=== PATIENT | male | born 1960 | race Caucasian/White ===

== ENCOUNTER 2017-12-21 10:51 | Emergency (ER) | payer MEDICARE, SELFPAY ==
[~2017-12-21] VITALS: Ht 177.8 cm; Wt 82.0 kg
[~2017-12-21 10:51] MED LIST changes: -LEVO750 PO; -NEPHRO-VITE RX1 EACH PO; -Vibramycin100 MG PO
[2017-12-21] MEDS ORDERED: Vibramycin100 MG PO (11:47)
[2017-12-22] MEDS ORDERED: LEVO750 PO (12:07)
== END 2017-12-21 12:16 | disposition home or self-care (01) ==
LOC: ER 10:51
DX: L02.211 Cutaneous abscess of abdominal wall (principal); Z79.899 Other long term (current) drug therapy; I13.2 Hypertensive heart and chronic kidney disease with heart failure and with stage 5 chronic kidney disease, or end stage renal disease; N18.6 End stage renal disease; I50.9 Heart failure, unspecified; E03.9 Hypothyroidism, unspecified; Z99.2 Dependence on renal dialysis; Z90.89 Acquired absence of other organs; Z90.49 Acquired absence of other specified parts of digestive tract; Z87.891 Personal history of nicotine dependence
CPT/HCPCS: 80076; 82150; 83690; 85025; 87070; 87075; 87205; 99283

== ENCOUNTER 2017-12-21 20:45 | Observation (INO) | payer MEDICARE, SELFPAY ==
[~2017-12-21] VITALS: Ht 177.8 cm; Wt 79.3 kg
[~2017-12-21 20:45] MED LIST changes: +Vibramycin100 MG PO
[2017-12-21 21:29] LABS: Bun/Creatinine Ratio 7.5 (12.0-20.0); Calcium, Blood 9.6 mg/dL (8.5-10.1); Creatinine, Blood 5.17 mg/dL (0.60-1.20); Potassium, Blood 4.1 mmol/L (3.5-5.5)
[2017-12-22] MEDS ORDERED: LEVO750 PO (12:07)
[2018-10-18] MEDS ORDERED: OXYC5 PO (13:41)
== END 2017-12-22 12:16 | disposition home or self-care (01) ==
LOC: ER 20:45 → MEDS 20:46 → ENPENDDIS 12-22 11:06 → MEDS 12-22 12:16
PROVIDERS: Physician Assistant
DX: T81.4XXA Infection following a procedure, initial encounter (principal); L03.311 Cellulitis of abdominal wall; R74.8 Abnormal levels of other serum enzymes; D63.1 Anemia in chronic kidney disease; I13.2 Hypertensive heart and chronic kidney disease with heart failure and with stage 5 chronic kidney disease, or end stage renal disease; N18.6 End stage renal disease; I50.9 Heart failure, unspecified; E03.9 Hypothyroidism, unspecified; E87.1 Hypo-osmolality and hyponatremia; K85.90 Acute pancreatitis without necrosis or infection, unspecified; Z79.899 Other long term (current) drug therapy; Z86.19 Personal history of other infectious and parasitic diseases; Z90.49 Acquired absence of other specified parts of digestive tract; Z87.891 Personal history of nicotine dependence
CPT/HCPCS: 36415; 74176; 80048; 80076; 82150; 83690; 85025; 87070; 87075; 87205; 99283; 99285; G0378

== ENCOUNTER → 2017-12-21 | Outpatient (CLI) | payer MEDICARE, SELFPAY ==
[~2017-12-21] MED LIST: ACIDOPHILUS1 EAC2 PO; ALLO100; ALLO100 PO; AMLO10 PO; AMLODIPINE; Amox Tr-K Clv1 EAC1 PO; BIOTIN5 MG PO; CALC.25 PO; CALCA500CH PO; CARV25 PO; CARV3.125 PO; Calcitriol0.5 MCG PO; FISH1000 PO; GABA100 PO; HYDSUL200 PO; Isosorbide Mono60 MG PO; LEVO750 PO; LEVSOD50 PO; Mupirocin22 GM TOP; NEPHRO-VITE RX1 EACH PO; NEPHROCAP PO; Nephro-Vite RX1 EA PO; OLME20 PO; OLME5TAB PO; OXYACE5T PO; PANT40 PO; Renvela800 MG PO; Synthroid25 MCG PO; Vibramycin100 MG PO
[2017-12-21 09:03] LABS: BASOPHILS ABSOLUTE AUTO 0.02 K/mm3 (0.00-0.23); BASOPHILS PERCENT AUTO 0 % (0-2); EOSINOPHILS ABSOLUTE AUTO 0.36 K/mm3 (0.00-0.68); EOSINOPHILS PERCENT AUTO 5 % (0-6); Hematocrit 29.3 % (37.0-53.0); Hemoglobin 9.8 g/dL (13.5-17.5); IMMATURE GRAN ABSOLUTE AUTO 0.03 K/mm3 (0.00-0.10); IMMATURE GRAN PERCENT AUTO 0 % (0-1); LYMPHOCYTES ABSOLUTE AUTO 0.96 K/mm3 (0.84-5.20); LYMPHOCYTES PERCENT AUTO 12 % (21-46); MONOCYTES PERCENT AUTO 12 % (4-13); Mean Corpuscular HGB 31.2 pg (26.0-34.0); Mean Corpuscular HGB Conc 33.4 g/dL (31.5-36.5); Mean Corpuscular Volume 93 fL (80-100); Mean Platelet Volume 9.4 fL (9.1-12.4); NEUTROPHILS ABSOLUTE AUTO 5.54 K/mm3 (1.96-9.15); NEUTROPHILS PERCENT AUTO 71 % (41-73); Platelet Count 256 K/mm3 (150-400); RDW Coefficient Variation 13.4 % (11.7-14.2); Red Blood Cell Count 3.14 M/mm3 (4.30-5.90); White Blood Cell Count 7.81 K/mm3 (4.00-11.30)
[2017-12-21 09:21] LABS: Albumin/Globulin Ratio 0.6 (0.8-1.8); Bilirubin, Direct 0.2 mg/dL (0.0-0.3); Bilirubin, Indirect 0.3 mg/dL (0.1-0.7); Bilirubin, Total 0.5 mg/dL (0.1-1.0); Globulin, Blood 5.1 g/dL (2.2-4.0); Total Protein, Blood 8.1 g/dL (6.4-8.2)
== END | disposition home or self-care (01) ==
LOC: LAB DAV 08:48
PROVIDERS: Internal Medicine Nephrology
DX: L03.90 Cellulitis, unspecified (principal)
CPT/HCPCS: 80076; 82150; 83690; 85025

== ENCOUNTER 2018-01-30 04:36 | Inpatient (IN) | payer MEDICARE, SELFPAY ==
[~2018-01-30] VITALS: Ht 180.3 cm; Wt 80.9 kg
[~2018-01-30 04:36] MED LIST changes: +LEVO750 PO
[2018-01-30 05:39] LABS: BASOPHILS ABSOLUTE AUTO 0.04 K/mm3 (0.00-0.23); BASOPHILS PERCENT AUTO 1 % (0-2); EOSINOPHILS ABSOLUTE AUTO 0.34 K/mm3 (0.00-0.68); EOSINOPHILS PERCENT AUTO 7 % (0-6); IMMATURE GRAN ABSOLUTE AUTO 0.01 K/mm3 (0.00-0.10); IMMATURE GRAN PERCENT AUTO 0 % (0-1); LYMPHOCYTES ABSOLUTE AUTO 1.09 K/mm3 (0.84-5.20); LYMPHOCYTES PERCENT AUTO 22 % (21-46); MONOCYTES ABSOLUTE AUTO 0.64 K/mm3 (0.16-1.47); MONOCYTES PERCENT AUTO 13 % (4-13); Mean Corpuscular HGB 30.5 pg (26.0-34.0); Mean Corpuscular HGB Conc 32.3 g/dL (31.5-36.5); Mean Corpuscular Volume 95 fL (80-100); Mean Platelet Volume 9.3 fL (9.1-12.4); NEUTROPHILS ABSOLUTE AUTO 2.88 K/mm3 (1.96-9.15); NEUTROPHILS PERCENT AUTO 58 % (41-73); Platelet Count 155 K/mm3 (150-400); RDW Coefficient Variation 14.3 % (11.7-14.2); RDW Standard Deviation 48.8 fL (35.1-46.3); Red Blood Cell Count 3.28 M/mm3 (4.30-5.90)
[2018-01-30 05:55] LABS: Alanine Aminotransfer (ALT/SGP 19 U/L (12-78); Albumin, Blood 3.1 g/dL (3.4-5.0); Albumin/Globulin Ratio 0.7 (0.8-1.8); Alk Phos 151 U/L (50-136); Anion Gap 9 mmol/L (6-16); Aspartate Aminotrans (AST/SGOT 19 U/L (12-37); Bilirubin, Total 0.4 mg/dL (0.1-1.0); Blood Urea Nitrogen 58 mg/dL (8-24); Bun/Creatinine Ratio 7.3 (12.0-20.0); CO2, Blood 31 mmol/L (21-32); Calcium, Blood 9.3 mg/dL (8.5-10.1); Chloride, Blood 97 mmol/L (98-108); Creatinine, Blood 7.92 mg/dL (0.60-1.20); Globulin, Blood 4.7 g/dL (2.2-4.0); Glomerular Filtration Rate 7 (60-); Glucose, Blood 104 mg/dL (70-99); Potassium, Blood 4.6 mmol/L (3.5-5.5); Sodium, Blood 137 mmol/L (136-145); Total Protein, Blood 7.8 g/dL (6.4-8.2); Troponin I <0.015 ng/mL (0.000-0.040)
[2018-01-30] MEDS ORDERED: NEPHRO-VITE RX1 EACH PO (07:21)
[2018-01-31 04:40] LABS: BASOPHILS ABSOLUTE AUTO 0.04 K/mm3 (0.00-0.23); BASOPHILS PERCENT AUTO 1 % (0-2); EOSINOPHILS ABSOLUTE AUTO 0.32 K/mm3 (0.00-0.68); EOSINOPHILS PERCENT AUTO 10 % (0-6); Hematocrit 29.7 % (37.0-53.0); Hemoglobin 9.5 g/dL (13.5-17.5); IMMATURE GRAN PERCENT AUTO 0 % (0-1); LYMPHOCYTES ABSOLUTE AUTO 0.91 K/mm3 (0.84-5.20); LYMPHOCYTES PERCENT AUTO 29 % (21-46); MONOCYTES ABSOLUTE AUTO 0.46 K/mm3 (0.16-1.47); MONOCYTES PERCENT AUTO 15 % (4-13); Mean Corpuscular HGB 30.6 pg (26.0-34.0); Mean Corpuscular Volume 96 fL (80-100); Mean Platelet Volume 9.3 fL (9.1-12.4); NEUTROPHILS ABSOLUTE AUTO 1.41 K/mm3 (1.96-9.15); NEUTROPHILS PERCENT AUTO 45 % (41-73); Platelet Count 146 K/mm3 (150-400); White Blood Cell Count 3.14 K/mm3 (4.00-11.30)
[2018-01-31 04:57] LABS: Albumin, Blood 2.8 g/dL (3.4-5.0); Anion Gap 9 mmol/L (6-16); Blood Urea Nitrogen 38 mg/dL (8-24); Bun/Creatinine Ratio 6.2 (12.0-20.0); CO2, Blood 30 mmol/L (21-32); Calcium, Blood 9.2 mg/dL (8.5-10.1); Chloride, Blood 99 mmol/L (98-108); Creatinine, Blood 6.12 mg/dL (0.60-1.20); Glomerular Filtration Rate 10 (60-); Glucose, Blood 87 mg/dL (70-99); Phosphorus, Blood 5.3 mg/dL (2.5-4.9); Potassium, Blood 4.9 mmol/L (3.5-5.5); Sodium, Blood 138 mmol/L (136-145)
[2018-01-31 20:27] LABS: HCV Reactive (NR)
[2018-02-01 05:30] LABS: Hematocrit 28.1 % (37.0-53.0); Hemoglobin 9.2 g/dL (13.5-17.5)
[2018-02-01 05:52] LABS: Albumin, Blood 2.9 g/dL (3.4-5.0); Anion Gap 6 mmol/L (6-16); Blood Urea Nitrogen 32 mg/dL (8-24); Bun/Creatinine Ratio 5.9 (12.0-20.0); CO2, Blood 32 mmol/L (21-32); Calcium, Blood 8.9 mg/dL (8.5-10.1); Chloride, Blood 94 mmol/L (98-108); Creatinine, Blood 5.41 mg/dL (0.60-1.20); Glomerular Filtration Rate 12 (60-); Glucose, Blood 93 mg/dL (70-99); Phosphorus, Blood 4.8 mg/dL (2.5-4.9); Potassium, Blood 4.3 mmol/L (3.5-5.5); Sodium, Blood 132 mmol/L (136-145)
[2018-10-18] MEDS ORDERED: OXYC5 PO (13:41)
== END 2018-02-01 14:19 | disposition home or self-care (01) | DRG 438 ==
LOC: ER 04:36 → MEDS 07:44 → ENPENDDIS 02-01 09:11 → MEDS 02-01 14:19
PROVIDERS: Emergency Medicine; Hospitalist; Internal Medicine Nephrology
PROC: 5A1D70Z Performance of Urinary Filtration, Intermittent, Less than 6 Hours Per Day (ICD-10-PCS; principal; 2018-01-30)
PROC: 5A1D70Z Performance of Urinary Filtration, Intermittent, Less than 6 Hours Per Day (ICD-10-PCS; 2018-01-31)
PROC: 5A1D70Z Performance of Urinary Filtration, Intermittent, Less than 6 Hours Per Day (ICD-10-PCS; 2018-02-01)
DX: K85.90 Acute pancreatitis without necrosis or infection, unspecified (principal); N18.6 End stage renal disease; I12.0 Hypertensive chronic kidney disease with stage 5 chronic kidney disease or end stage renal disease; E83.39 Other disorders of phosphorus metabolism; E87.1 Hypo-osmolality and hyponatremia; N25.81 Secondary hyperparathyroidism of renal origin; E88.09 Other disorders of plasma-protein metabolism, not elsewhere classified; E03.9 Hypothyroidism, unspecified; M10.9 Gout, unspecified; D63.1 Anemia in chronic kidney disease; E86.9 Volume depletion, unspecified; Z99.2 Dependence on renal dialysis; Z79.899 Other long term (current) drug therapy
CPT/HCPCS: 36415; 80048; 80053; 80069; 80074; 83690; 83735; 84484; 85014; 85018; 85025; 86706; 93005; 93010; 96361; 96374; 96375; 96376; 99285; C9113; J0881; J1170; J1650; J2405; J7030; J7131

== ENCOUNTER → 2019-04-28 | Outpatient (CLI) | payer MEDICARE ==
[~2019-04-28] MED LIST changes: +NEPHRO-VITE RX1 EACH PO; +OXYC5 PO
[2019-04-28 09:50] LABS: Amylase, Blood 94 U/L (25-115)
== END | disposition home or self-care (01) ==
LOC: LAB 08:56 → LAB DAV 08:56
PROVIDERS: Internal Medicine Nephrology
DX: R10.9 Unspecified abdominal pain (principal)
CPT/HCPCS: 82150; 83690

== ENCOUNTER → 2020-05-14 | Outpatient (CLI) | payer MEDICARE ==
[2020-05-14 09:46] LABS: Albumin, Blood 3.1 g/dL (3.4-5.0); Albumin/Globulin Ratio 0.8 (0.8-1.8); Bilirubin, Direct 0.2 mg/dL (0.0-0.3); Bilirubin, Indirect 0.3 mg/dL (0.1-0.7); Bilirubin, Total 0.5 mg/dL (0.1-1.0); Total Protein, Blood 7.1 g/dL (6.4-8.2)
== END | disposition home or self-care (01) ==
LOC: LAB 06:00 → LAB SHORT 06:00
PROVIDERS: Internal Medicine Nephrology
DX: R10.9 Unspecified abdominal pain (principal)
CPT/HCPCS: 80076; 82150; 83690

== ENCOUNTER 2020-11-10 05:49 | Day surgery (SDC) | payer MEDICARE, SELFPAY ==
[~2020-11-10] VITALS: Ht 180.3 cm; Wt 84.0 kg
[~2020-11-10 05:49] MED LIST changes: +CLON.1 PO; +NORVASC2.5 MG PO; +RENAL VITAMIN0.8 MG PO; +Sensipar60 MG PO; +TUMS500 MG PO
--- NOTE | 2020-11-10 10:11 | NUR ---
PT IV DC'D INTACT, PT DRESSED AND DC'D BY WC, FRIEND DRIVING PT HOME, VS PRINTED AND PLACED ON RHYTHM STRIP RECORD
== END 2020-11-10 09:30 | disposition home or self-care (01) ==
LOC: MHTC 05:49
DX: T82.590A Other mechanical complication of surgically created arteriovenous fistula, initial encounter (principal); I13.2 Hypertensive heart and chronic kidney disease with heart failure and with stage 5 chronic kidney disease, or end stage renal disease; E11.22 Type 2 diabetes mellitus with diabetic chronic kidney disease; N18.6 End stage renal disease; I50.9 Heart failure, unspecified; E03.9 Hypothyroidism, unspecified; Z99.2 Dependence on renal dialysis; M10.9 Gout, unspecified; Z87.891 Personal history of nicotine dependence; Z79.899 Other long term (current) drug therapy; Z20.828 Contact with and (suspected) exposure to other viral communicable diseases; Y83.2 Surgical operation with anastomosis, bypass or graft as the cause of abnormal reaction of the patient, or of later complication, without mention of misadventure at the time of the procedure
CPT/HCPCS: 49400; 74190; 99152; C1769; J1644; J2250; J3010; J7030; J7040; J7050; Q9967

== ENCOUNTER 2022-05-25 17:45 | Observation (INO) | payer MEDICARE ==
[~2022-05-25] VITALS: Ht 182.9 cm; Wt 90.7 kg
[~2022-05-25 17:45] MED LIST changes: -GABA100 PO; +GABA300 PO
[2022-05-25 19:22] LABS: BASOPHILS ABSOLUTE AUTO 0.04 K/mm3 (0.00-0.23); BASOPHILS PERCENT AUTO 1 % (0-2); EOSINOPHILS ABSOLUTE AUTO 0.19 K/mm3 (0.00-0.68); EOSINOPHILS PERCENT AUTO 4 % (0-6); Hematocrit 29.2 % (37.0-53.0); Hemoglobin 9.9 g/dL (13.5-17.5); IMMATURE GRAN ABSOLUTE AUTO 0.01 K/mm3 (0.00-0.10); IMMATURE GRAN PERCENT AUTO 0 % (0-1); LYMPHOCYTES ABSOLUTE AUTO 0.85 K/mm3 (0.84-5.20); LYMPHOCYTES PERCENT AUTO 18 % (21-46); MONOCYTES ABSOLUTE AUTO 0.63 K/mm3 (0.16-1.47); MONOCYTES PERCENT AUTO 14 % (4-13); Mean Corpuscular HGB 34.5 pg (26.0-34.0); Mean Corpuscular HGB Conc 33.9 g/dL (31.5-36.5); Mean Corpuscular Volume 102 fL (80-100); Mean Platelet Volume 10.1 fL (9.1-12.4); NEUTROPHILS ABSOLUTE AUTO 2.95 K/mm3 (1.96-9.15); NEUTROPHILS PERCENT AUTO 63 % (41-73); Platelet Count 139 K/mm3 (150-400); RDW Coefficient Variation 13.2 % (11.7-14.2); RDW Standard Deviation 49.3 fL (35.1-46.3); Red Blood Cell Count 2.87 M/mm3 (4.30-5.90); White Blood Cell Count 4.67 K/mm3 (4.00-11.30)
[2022-05-25 19:34] LABS: Albumin, Blood 3.7 g/dL (3.4-5.0); Albumin/Globulin Ratio 0.9 (0.8-1.8); Bilirubin, Total 0.7 mg/dL (0.1-1.0); Bun/Creatinine Ratio 5.5 (12.0-20.0); Calcium, Blood 8.6 mg/dL (8.5-10.1); Creatinine, Blood 6.22 mg/dL (0.60-1.20); Globulin, Blood 3.9 g/dL (2.2-4.0); Potassium, Blood 4.5 mmol/L (3.5-5.5); Total Protein, Blood 7.6 g/dL (6.4-8.2)
[2022-05-25] MEDS ORDERED: LOSA50 PO (19:57)
[2022-05-25 20:02] LABS: International Normalized Ratio 1.17; Prothrombin Time Results 12.2 Sec (9.7-11.5)
[2022-05-26 05:39] LABS: BASOPHILS ABSOLUTE AUTO 0.05 K/mm3 (0.00-0.23); BASOPHILS PERCENT AUTO 1 % (0-2); EOSINOPHILS ABSOLUTE AUTO 0.26 K/mm3 (0.00-0.68); EOSINOPHILS PERCENT AUTO 4 % (0-6); Hematocrit 28.5 % (37.0-53.0); Hemoglobin 9.6 g/dL (13.5-17.5); IMMATURE GRAN ABSOLUTE AUTO 0.02 K/mm3 (0.00-0.10); IMMATURE GRAN PERCENT AUTO 0 % (0-1); LYMPHOCYTES ABSOLUTE AUTO 1.18 K/mm3 (0.84-5.20); LYMPHOCYTES PERCENT AUTO 17 % (21-46); MONOCYTES ABSOLUTE AUTO 0.74 K/mm3 (0.16-1.47); MONOCYTES PERCENT AUTO 11 % (4-13); Mean Corpuscular HGB 34.4 pg (26.0-34.0); Mean Corpuscular HGB Conc 33.7 g/dL (31.5-36.5); Mean Corpuscular Volume 102 fL (80-100); NEUTROPHILS ABSOLUTE AUTO 4.71 K/mm3 (1.96-9.15); NEUTROPHILS PERCENT AUTO 68 % (41-73); Platelet Count 148 K/mm3 (150-400); RDW Coefficient Variation 13.3 % (11.7-14.2); RDW Standard Deviation 50.6 fL (35.1-46.3); Red Blood Cell Count 2.79 M/mm3 (4.30-5.90); White Blood Cell Count 6.96 K/mm3 (4.00-11.30)
[2022-05-26 06:09] LABS: Albumin, Blood 3.7 g/dL (3.4-5.0); Anion Gap 9 mmol/L (6-16); Blood Urea Nitrogen 39 mg/dL (8-24); Bun/Creatinine Ratio 5.5 (12.0-20.0); CO2, Blood 31 mmol/L (21-32); Calcium, Blood 8.8 mg/dL (8.5-10.1); Chloride, Blood 96 mmol/L (98-108); Creatinine, Blood 7.08 mg/dL (0.60-1.20); Glomerular Filtration Rate 8 (60-); Glucose, Blood 127 mg/dL (70-99); Magnesium, Blood 2.2 mg/dL (1.6-2.4); Phosphorus, Blood 3.7 mg/dL (2.5-4.9); Potassium, Blood 4.5 mmol/L (3.5-5.5); Sodium, Blood 136 mmol/L (136-145)
--- NOTE | 2022-05-26 06:23 | NUR ---
SHIFT SUMMARY PATIENT ARRIVED TO ROOM 337 VIA STRETCHER AT 2114. HE IS ALERT AND ORIENTED. BLOOD NOTED ON THE PATIENT'S BANDAGE OVER L THIGH LACERATION. AREA MARKED, NO CONTINUED BLEEDING NOTED. PATIENT MEDICATED PER EMAR FOR PAIN AND HTN. HE IS STEADY ON HIS FEET. CALL LIGHT WITHIN REACH. REPORT GIVEN TO ONCOMING RN.
[2022-05-26] MEDS ORDERED: SULTRIDS PO (12:02)
[2022-05-26] MEDS ORDERED: HYDACE10B PO (12:03)
--- NOTE | 2022-05-26 16:50 | NUR ---
DISCHARGE REVIEWED WITH PT. IV PULLED INTACT. TELE REMOVED BY AIDE. RE- EXPLAINED DISCHARGE WOUND CARE PROCESS. SHOWED ITEMS. GAVE HIM PLENTY OF WOUND CHANGE ITEMS PER DR VELEZ. PT VERBALIZED UNDRSTANDING MEDS AND INST. GOT PM DOSE OF ABX AND ADMIN PER DR VELEZ. PT PUT PAIN RX UNDRE HIS HAT FOR SAFE KEEPING. PT WHEELED TO DOOR AT 1642
[2022-06-19] MEDS ORDERED: SEVEC800 PO (13:36)
[2022-06-21] MEDS ORDERED: VISBIOME 112.51 EACH PO (14:10)
[2022-06-21] MEDS ORDERED: ACET325 PO (14:10)
[2022-06-21] MEDS ORDERED: CEFP200 PO (14:10)
== END 2022-05-26 16:42 | disposition home or self-care (01) ==
LOC: ER 17:45 → MEDS 17:46
PROVIDERS: Emergency Medicine; ADMIT Family Medicine
DX: S71.112A Laceration without foreign body, left thigh, initial encounter (principal); E03.9 Hypothyroidism, unspecified; I12.0 Hypertensive chronic kidney disease with stage 5 chronic kidney disease or end stage renal disease; N18.6 End stage renal disease; D63.1 Anemia in chronic kidney disease; M10.9 Gout, unspecified; W27.0XXA Contact with workbench tool, initial encounter; Z79.899 Other long term (current) drug therapy; Z87.891 Personal history of nicotine dependence; Z99.2 Dependence on renal dialysis
CPT/HCPCS: 12005; 36415; 80053; 80069; 83735; 85025; 85610; 85730; 90471; 93306; 96374-59; 96375; 96375-59; 96376; 99285-25; A9270; G0257; G0378; J0360; J0690; J1170; J3010

== ENCOUNTER 2022-06-16 14:08 | Emergency (ER) | payer MEDICARE ==
[~2022-06-16] VITALS: Ht 180.3 cm; Wt 83.9 kg
[~2022-06-16 14:08] MED LIST changes: +HYDACE10B PO; +LOSA50 PO; +SULTRIDS PO
[2022-06-19] MEDS ORDERED: SEVEC800 PO (13:36)
== END 2022-06-16 15:30 | disposition home or self-care (01) ==
LOC: ER 14:08
DX: S81.812D Laceration without foreign body, left lower leg, subsequent encounter (principal); E03.9 Hypothyroidism, unspecified; I12.9 Hypertensive chronic kidney disease with stage 1 through stage 4 chronic kidney disease, or unspecified chronic kidney disease; N18.9 Chronic kidney disease, unspecified; Z87.891 Personal history of nicotine dependence; W27.0XXD Contact with workbench tool, subsequent encounter; Z79.899 Other long term (current) drug therapy
CPT/HCPCS: 12016; 99282-25

== ENCOUNTER 2022-06-19 12:25 | Inpatient (IN) | payer MEDICARE ==
[~2022-06-19] VITALS: Ht 180.3 cm; Wt 89.7 kg
[2022-06-19] MEDS ORDERED: SEVEC800 PO ×2 (13:36)
[2022-06-19 13:37] LABS: BASOPHILS ABSOLUTE AUTO 0.04 K/mm3 (0.00-0.23); BASOPHILS PERCENT AUTO 1 % (0-2); EOSINOPHILS ABSOLUTE AUTO 0.16 K/mm3 (0.00-0.68); EOSINOPHILS PERCENT AUTO 4 % (0-6); Hematocrit 32.4 % (37.0-53.0); Hemoglobin 11.3 g/dL (13.5-17.5); IMMATURE GRAN ABSOLUTE AUTO 0.01 K/mm3 (0.00-0.10); IMMATURE GRAN PERCENT AUTO 0 % (0-1); LYMPHOCYTES ABSOLUTE AUTO 0.53 K/mm3 (0.84-5.20); LYMPHOCYTES PERCENT AUTO 14 % (21-46); MONOCYTES PERCENT AUTO 16 % (4-13); Mean Corpuscular HGB 34.8 pg (26.0-34.0); Mean Corpuscular HGB Conc 34.9 g/dL (31.5-36.5); Mean Corpuscular Volume 100 fL (80-100); Mean Platelet Volume 9.2 fL (9.1-12.4); NEUTROPHILS ABSOLUTE AUTO 2.38 K/mm3 (1.96-9.15); NEUTROPHILS PERCENT AUTO 64 % (41-73); Platelet Count 144 K/mm3 (150-400); RDW Coefficient Variation 13.7 % (11.7-14.2); RDW Standard Deviation 49.9 fL (35.1-46.3); Red Blood Cell Count 3.25 M/mm3 (4.30-5.90); White Blood Cell Count 3.72 K/mm3 (4.00-11.30)
[2022-06-19 14:03] LABS: Albumin, Blood 3.7 g/dL (3.4-5.0); Albumin/Globulin Ratio 0.8 (0.8-1.8); Bilirubin, Total 0.6 mg/dL (0.1-1.0); Bun/Creatinine Ratio 4.8 (12.0-20.0); Calcium, Blood 8.8 mg/dL (8.5-10.1); Creatinine, Blood 3.98 mg/dL (0.60-1.20); Globulin, Blood 4.6 g/dL (2.2-4.0); Potassium, Blood 4.3 mmol/L (3.5-5.5); Total Protein, Blood 8.3 g/dL (6.4-8.2)
--- NOTE | 2022-06-19 15:24 | NUR ---
PT BROUGHT TO DAY SURGERY BY GREG SALAZAR. DR. EARLY AND DR LARA BOTH HERE TO TALK WITH PT ABOUT SURGERY. PT ALERT AND ORIETED. LIMITED ASSESSMENT BY THIS RN. VITAL OBTAINED. NS STARTED. PAS TO R LEG. PT GIVEN VERSED PRIOR TO BEING TAKEN BACK TO OR BY CANDACE Hanson RN. PT ON SCHEDULE ANTIBIOTIC. PT REPORTS NO ACUTE DISTRESS. REPORTS PAIN AN ACHE TO LEFT KNEE.
--- NOTE | 2022-06-19 17:30 | NUR ---
EXTENDED TIME IN PACU DUE TO WAITING FOR ADMIT ORDERS AND GETTING A ROOM FOR PT
--- NOTE | 2022-06-20 04:23 | NUR ---
SHIFT SUMMARY PT IS PLEASANT AND COOPERATIVE. PT HAS NOT HAD ANY COMPLAINTS THIS SHIFT. PT WOUND VAC IS IN PLACE AND DRAINING. PT HAS CALL LIGHT WITHIN HIS REACH. PT SLEEPING OFF AND ON THROUGH THE NIGHT.
[2022-06-20 04:42] LABS: Hematocrit 28.4 % (37.0-53.0); Hemoglobin 9.8 g/dL (13.5-17.5); Mean Corpuscular HGB Conc 34.5 g/dL (31.5-36.5); Mean Corpuscular Volume 101 fL (80-100); Mean Platelet Volume 9.5 fL (9.1-12.4); Platelet Count 129 K/mm3 (150-400); RDW Coefficient Variation 13.8 % (11.7-14.2); RDW Standard Deviation 50.9 fL (35.1-46.3); White Blood Cell Count 2.79 K/mm3 (4.00-11.30)
[2022-06-20 05:09] LABS: Bun/Creatinine Ratio 5.9 (12.0-20.0); Calcium, Blood 8.4 mg/dL (8.5-10.1); Creatinine, Blood 5.29 mg/dL (0.60-1.20); Potassium, Blood 4.4 mmol/L (3.5-5.5)
--- NOTE | 2022-06-20 13:10 | NUR ---
MR CHRISTIANSON IS A&OX4. DRESSING TO LEFT LEG C,D,I WITH CLAUDIO WRAP BANDAGE. THIS DRESSING IS THE OR DRESSING LEFT INTECT. SMALL AMOUNT OF PINK FLUID TOP THE WOUND VAC. MINIMAL DISCOMFORT PER PT. SCDS ON. PT HAS DECLINED GETTING UP IN THE CHAIR THIS AM, BUT SAID THAT HE WILL GET UP THIS AFTERNOON. EATING WELL. NO DIALYSIS TODAY. FISTAL LEFT UPPER ARM WITH STRONG BRUIT/THRILL. BED LOW, CALL LIGHT IN REACH.
--- NOTE | 2022-06-20 17:57 | NUR ---
SHIFT SUMMARY MR CHRISTIANSON IS A&OX4. HE HAS C/O MINIMAL PAIN TO LEFT THIGH TODAY, DECLINED PAIN MEDS. DR EARLY CHANGED THE WOUND VAC DRESSING THIS EVENING AND SAID PLAN IS FOR HIM TO GET NEXT WOUND VAC DRESSING CHANGE IN WOUND CLINIC ON SATURDAY AND BE DISCHARGED HOME WITH WOUND VAC TOMORROW. MR CHRISTIANSON HAS BEEN ENCOURAGED TO AMBULATE AND CAN WEIGHT BEAR TOLERATED. NO DIALYSIS TODAY. FISTULA L UPPER ARM STRONG BRUIT & THRILL. PT SAID IT IS NORMAL FOR HIM TO VOID VERY LITTLE, HAS NOT VOIDED THIS SHIFT. BED LOW, CALL LIGHT IN REACH.
--- NOTE | 2022-06-21 04:06 | NUR ---
SHIFT SUMMARY PT HAS NO COMPLAINTS AT THIS TIME. PT DID HAVE HEADACHE EARLIER TONIGHT AND WAS GIVEN TYLENOL, WHICH TOOK THE HEADACHE AWAY. PT HAS ALSO BEEN HAVING SOME SLIGHT PAIN IN HIS L THIGH. PT MEDICATED PER ANIL MORGAN. PT SLEEPING SOME THROUGH THE NIGHT. PT IS PLEASANT AND IS HOPING TO BE DISCHARGED TODAY. PT HAS CALL LIGHT WITHIN HIS REACH.
[2022-06-21 04:42] LABS: Hematocrit 28.5 % (37.0-53.0); Hemoglobin 9.5 g/dL (13.5-17.5)
[2022-06-21 05:04] LABS: Albumin, Blood 3.2 g/dL (3.4-5.0); Anion Gap 7 mmol/L (6-16); Blood Urea Nitrogen 47 mg/dL (8-24); Bun/Creatinine Ratio 6.5 (12.0-20.0); CO2, Blood 32 mmol/L (21-32); Chloride, Blood 91 mmol/L (98-108); Creatinine, Blood 7.28 mg/dL (0.60-1.20); Glomerular Filtration Rate 8 (60-); Glucose, Blood 147 mg/dL (70-99); Magnesium, Blood 2.1 mg/dL (1.6-2.4); Phosphorus, Blood 3.8 mg/dL (2.5-4.9); Potassium, Blood 4.3 mmol/L (3.5-5.5); Sodium, Blood 130 mmol/L (136-145); Vancomycin, Random 20.2 ug/mL
[2022-06-21] MEDS ORDERED: VISBIOME 112.51 EACH PO ×2 (14:10)
[2022-06-21] MEDS ORDERED: CEFP200 PO ×2 (14:10)
[2022-06-21] MEDS ORDERED: ACET325 PO ×2 (14:10)
--- NOTE | 2022-06-21 16:59 | NUR ---
SHIFT SUMMARY; PATIENT HAS DC ORDERS HOWEVER CANNOT DC UNTIL THERE IS HOME HEALTH IN PLACE THAT CAN DO WOUND VAC DRESSING CHANGES 3 TIMES PER WEEK. WOUND CENTER IS OUT ONE WEEK. [facility] CANNOT BE THERE TILL SATURDAY. CHARGE ROSA MARIA RN TRYING TO ARRANGE FOR ER TO CHANGE DRESSING TOMORROW. WILL LET PATIENT KNOW IF PATIENT CAN BE DISCHARGED TONIGHT OR TOMORROW WITH [facility] IN PLACE. PAITENT HAS PLEASANT AFFECT. COOPERATIVE WITH CARE. DENIES ANY WANTS OR NEEDS. WILLING TO STAY ANOTHER NIGHT IF NEEDED.
--- NOTE | 2022-06-22 03:55 | NUR ---
SHIFT SUMMARY NO ACUTE CHANGES TO PT STATUS. PT DID HAVE 2/10 L THIGH PAIN EARLIER, AND WAS MEDICATED PER EMAR FOR IT, WITH SOME RELIEF. PT PLEASANT AND COOPERATIVE WITHE CARE. PT SHOULD BE DISCHARGED TODAY. PT HAS CALL LIGHT WITHIN REACH.
[2022-06-22 05:01] LABS: Hematocrit 28.6 % (37.0-53.0); Hemoglobin 9.6 g/dL (13.5-17.5)
[2022-06-22 05:23] LABS: Albumin, Blood 3.2 g/dL (3.4-5.0); Anion Gap 8 mmol/L (6-16); Blood Urea Nitrogen 37 mg/dL (8-24); Bun/Creatinine Ratio 5.5 (12.0-20.0); CO2, Blood 30 mmol/L (21-32); Calcium, Blood 7.6 mg/dL (8.5-10.1); Chloride, Blood 93 mmol/L (98-108); Creatinine, Blood 6.67 mg/dL (0.60-1.20); Glomerular Filtration Rate 9 (60-); Glucose, Blood 104 mg/dL (70-99); Phosphorus, Blood 3.3 mg/dL (2.5-4.9); Potassium, Blood 4.8 mmol/L (3.5-5.5); Sodium, Blood 131 mmol/L (136-145); Vancomycin, Random 18.8 ug/mL
== END 2022-06-22 10:45 | disposition home health service (06) | DRG 856 ==
LOC: ER 12:25 → MEDS 14:59 → SURS 14:59 → MEDS 16:49 → ENPENDDIS 06-21 16:27 → MEDS 06-22 10:45
PROVIDERS: Internal Medicine; Internal Medicine Nephrology; Physician Assistant; ADMIT Orthopaedic Surgery
PROC: 0JBM0ZZ Excision of Left Upper Leg Subcutaneous Tissue and Fascia, Open Approach (ICD-10-PCS; principal; 2022-06-19 16:00)
PROC: 5A1D70Z Performance of Urinary Filtration, Intermittent, Less than 6 Hours Per Day (ICD-10-PCS; 2022-06-20)
DX: T81.49XA Infection following a procedure, other surgical site, initial encounter (principal); N18.6 End stage renal disease; N25.81 Secondary hyperparathyroidism of renal origin; I13.2 Hypertensive heart and chronic kidney disease with heart failure and with stage 5 chronic kidney disease, or end stage renal disease; E87.1 Hypo-osmolality and hyponatremia; T81.31XA Disruption of external operation (surgical) wound, not elsewhere classified, initial encounter; L76.32 Postprocedural hematoma of skin and subcutaneous tissue following other procedure; E03.9 Hypothyroidism, unspecified; D63.1 Anemia in chronic kidney disease; B96.89 Other specified bacterial agents as the cause of diseases classified elsewhere; M10.9 Gout, unspecified; E86.9 Volume depletion, unspecified; J44.9 Chronic obstructive pulmonary disease, unspecified; I50.9 Heart failure, unspecified; Z87.19 Personal history of other diseases of the digestive system; Z90.49 Acquired absence of other specified parts of digestive tract; Z98.890 Other specified postprocedural states; Z87.891 Personal history of nicotine dependence; Z99.2 Dependence on renal dialysis; Z79.899 Other long term (current) drug therapy; Z79.891 Long term (current) use of opiate analgesic; Z79.2 Long term (current) use of antibiotics; B18.2 Chronic viral hepatitis C; Y83.8 Other surgical procedures as the cause of abnormal reaction of the patient, or of later complication, without mention of misadventure at the time of the procedure
CPT/HCPCS: 36415; 80048; 80053; 80069; 80202; 82947; 83735; 85014; 85018; 85025; 85027; 87071; 87075; 87077; 87205; 96374; 99284-25; A9270; J0295; J0690; J0881; J1100; J2250; J2405; J2704; J3010; J3370; J7030; J7060

== ENCOUNTER 2022-06-29 02:24 | Day surgery (SDC) | payer MEDICARE ==
[~2022-06-29 02:24] MED LIST changes: +ACET325 PO; +CEFP200 PO; +SEVEC800 PO; +VISBIOME 112.51 EACH PO
== END 2022-06-29 23:36 | disposition home or self-care (01) ==
LOC: WOUND 02:24
DX: T81.31XD Disruption of external operation (surgical) wound, not elsewhere classified, subsequent encounter (principal); S71.102D Unspecified open wound, left thigh, subsequent encounter; X58.XXXD Exposure to other specified factors, subsequent encounter; I12.0 Hypertensive chronic kidney disease with stage 5 chronic kidney disease or end stage renal disease; N18.6 End stage renal disease; Z87.891 Personal history of nicotine dependence
CPT/HCPCS: A9270; G0463

== ENCOUNTER 2022-07-01 17:54 | Emergency (ER) | payer MEDICARE, OTHER ==
[~2022-07-01] VITALS: Ht 182.9 cm; Wt 83.9 kg
[2022-07-01 18:48] LABS: BASOPHILS ABSOLUTE AUTO 0.04 K/mm3 (0.00-0.23); BASOPHILS PERCENT AUTO 0 % (0-2); EOSINOPHILS ABSOLUTE AUTO 0.01 K/mm3 (0.00-0.68); EOSINOPHILS PERCENT AUTO 0 % (0-6); Hematocrit 31.9 % (37.0-53.0); Hemoglobin 10.9 g/dL (13.5-17.5); IMMATURE GRAN ABSOLUTE AUTO 0.05 K/mm3 (0.00-0.10); IMMATURE GRAN PERCENT AUTO 1 % (0-1); LYMPHOCYTES ABSOLUTE AUTO 0.54 K/mm3 (0.84-5.20); LYMPHOCYTES PERCENT AUTO 6 % (21-46); MONOCYTES ABSOLUTE AUTO 0.86 K/mm3 (0.16-1.47); MONOCYTES PERCENT AUTO 9 % (4-13); Mean Corpuscular HGB 34.2 pg (26.0-34.0); Mean Corpuscular HGB Conc 34.2 g/dL (31.5-36.5); Mean Corpuscular Volume 100 fL (80-100); Mean Platelet Volume 9.4 fL (9.1-12.4); NEUTROPHILS PERCENT AUTO 85 % (41-73); Platelet Count 122 K/mm3 (150-400); RDW Coefficient Variation 14.1 % (11.7-14.2); RDW Standard Deviation 52.4 fL (35.1-46.3); Red Blood Cell Count 3.19 M/mm3 (4.30-5.90)
[2022-07-01] MEDS ORDERED: CEFP200 PO (19:27)
[2022-07-01 19:28] LABS: International Normalized Ratio 1.21; Prothrombin Time Results 12.5 Sec (9.7-11.5)
[2022-07-01] MEDS ORDERED: SULFAMETHOXAZO1 EAC1 PO (19:28)
[2022-07-01] MEDS ORDERED: TRAM50 PO (19:29)
[2022-07-01] MEDS ORDERED: NEURONTIN300 MG PO (19:31)
[2022-07-01 19:32] LABS: Albumin, Blood 3.2 g/dL (3.4-5.0); Albumin/Globulin Ratio 0.7 (0.8-1.8); Bilirubin, Total 1.1 mg/dL (0.1-1.0); Bun/Creatinine Ratio 5.4 (12.0-20.0); Calcium, Blood 7.9 mg/dL (8.5-10.1); Creatinine, Blood 7.47 mg/dL (0.60-1.20); Globulin, Blood 4.4 g/dL (2.2-4.0); Potassium, Blood 3.9 mmol/L (3.5-5.5); Total Protein, Blood 7.6 g/dL (6.4-8.2)
[2022-07-01 19:54] LABS: Influenza A, PCR NEGATIVE (NEGATIVE); Influenza B, PCR NEGATIVE (NEGATIVE); Resp Syncytial Virus, PCR NEGATIVE (NEGATIVE); SARS-Cov-2 (COVID-19) PCR, MMC NEGATIVE (NEGATIVE)
[2022-07-01] MEDS ORDERED: LEVO750 PO (22:47)
== END 2022-07-01 23:59 | disposition home or self-care (01) ==
LOC: ER 17:54
PROVIDERS: Physician Assistant
DX: R50.9 Fever, unspecified (principal); R53.1 Weakness; S71.112D Laceration without foreign body, left thigh, subsequent encounter; I13.2 Hypertensive heart and chronic kidney disease with heart failure and with stage 5 chronic kidney disease, or end stage renal disease; N18.6 End stage renal disease; I50.9 Heart failure, unspecified; E03.9 Hypothyroidism, unspecified; Z99.2 Dependence on renal dialysis; Z87.891 Personal history of nicotine dependence; Z79.899 Other long term (current) drug therapy; Z20.822 Contact with and (suspected) exposure to COVID-19; W27.0XXD Contact with workbench tool, subsequent encounter
CPT/HCPCS: 0241U; 36415; 71045; 73562-LT; 80053; 83605; 85025; 85610; 85730; 93005; 93010; A9270; J1956; J7030

== ENCOUNTER 2022-07-13 02:06 | Day surgery (SDC) | payer MEDICARE ==
[~2022-07-13 02:06] MED LIST changes: +NEURONTIN300 MG PO; +SULFAMETHOXAZO1 EAC1 PO; +TRAM50 PO
== END 2022-07-13 23:54 | disposition home or self-care (01) ==
LOC: WOUND 02:06
DX: T81.33XD Disruption of traumatic injury wound repair, subsequent encounter (principal); I12.0 Hypertensive chronic kidney disease with stage 5 chronic kidney disease or end stage renal disease; N18.6 End stage renal disease; W27.0XXD Contact with workbench tool, subsequent encounter
CPT/HCPCS: A9270; G0463

== ENCOUNTER 2022-07-20 01:07 | Day surgery (SDC) | payer MEDICARE | END 2022-07-20 23:09 | disposition home or self-care (01) | LOC: WOUND 01:07 | DX: T81.31XD Disruption of external operation (surgical) wound, not elsewhere classified, subsequent encounter (principal); X58.XXXD Exposure to other specified factors, subsequent encounter | CPT/HCPCS: G0463 ==

== ENCOUNTER 2022-07-27 01:56 | Day surgery (SDC) | payer MEDICARE | END 2022-07-27 23:19 | disposition home or self-care (01) | LOC: WOUND 01:56 | DX: T81.31XA Disruption of external operation (surgical) wound, not elsewhere classified, initial encounter (principal); Y69 Unspecified misadventure during surgical and medical care | CPT/HCPCS: G0463 ==

== ENCOUNTER 2023-02-28 16:53 | Inpatient (IN) | payer MEDICARE ==
[~2023-02-28] VITALS: Ht 177.8 cm; Wt 89.5 kg
[2023-02-28 17:34] LABS: BASOPHILS ABSOLUTE AUTO 0.03 K/mm3 (0.00-0.23); BASOPHILS PERCENT AUTO 1 % (0-2); EOSINOPHILS ABSOLUTE AUTO 0.05 K/mm3 (0.00-0.68); EOSINOPHILS PERCENT AUTO 1 % (0-6); Hematocrit 33.7 % (37.0-53.0); Hemoglobin 11.6 g/dL (13.5-17.5); IMMATURE GRAN ABSOLUTE AUTO 0.02 K/mm3 (0.00-0.10); IMMATURE GRAN PERCENT AUTO 0 % (0-1); LYMPHOCYTES ABSOLUTE AUTO 0.23 K/mm3 (0.84-5.20); LYMPHOCYTES PERCENT AUTO 5 % (21-46); MONOCYTES ABSOLUTE AUTO 0.54 K/mm3 (0.16-1.47); MONOCYTES PERCENT AUTO 11 % (4-13); Mean Corpuscular HGB 34.4 pg (26.0-34.0); Mean Corpuscular HGB Conc 34.4 g/dL (31.5-36.5); Mean Corpuscular Volume 100 fL (80-100); Mean Platelet Volume 9.6 fL (9.1-12.4); NEUTROPHILS ABSOLUTE AUTO 4.04 K/mm3 (1.96-9.15); NEUTROPHILS PERCENT AUTO 82 % (41-73); Platelet Count 139 K/mm3 (150-400); RDW Coefficient Variation 13.6 % (11.7-14.2); RDW Standard Deviation 49.5 fL (35.1-46.3); Red Blood Cell Count 3.37 M/mm3 (4.30-5.90); White Blood Cell Count 4.91 K/mm3 (4.00-11.30)
[2023-02-28 18:37] LABS: Alanine Aminotransfer (ALT/SGP 8 U/L (12-78); Albumin, Blood 3.4 g/dL (3.4-5.0); Albumin/Globulin Ratio 0.9 (0.8-1.8); Alk Phos 112 U/L (50-136); Anion Gap 8 mmol/L (6-16); Aspartate Aminotrans (AST/SGOT 27 U/L (12-37); Bilirubin, Total 0.5 mg/dL (0.1-1.0); Blood Urea Nitrogen 73 mg/dL (8-24); CO2, Blood 26 mmol/L (21-32); Chloride, Blood 93 mmol/L (98-108); Globulin, Blood 3.9 g/dL (2.2-4.0); Glomerular Filtration Rate 5 (60-); Glucose, Blood 116 mg/dL (70-99); Potassium, Blood 6.2 mmol/L (3.5-5.5); Sodium, Blood 127 mmol/L (136-145); Total Protein, Blood 7.3 g/dL (6.4-8.2)
[2023-02-28 18:38] LABS: Bun/Creatinine Ratio 6.5 (12.0-20.0); Calcium, Blood 9.3 mg/dL (8.5-10.1); Ethanol (Alcohol), Blood, Med <3 mg/dL
[2023-02-28 18:46] LABS: Influenza A, PCR NEGATIVE (NEGATIVE); Influenza B, PCR NEGATIVE (NEGATIVE); Resp Syncytial Virus, PCR NEGATIVE (NEGATIVE); SARS-Cov-2 (COVID-19) PCR, MMC NEGATIVE (NEGATIVE)
[2023-02-28 22:16] VITALS: BP 153/92
[2023-02-28 22:24] VITALS: BP 167/91
[2023-02-28 23:18] VITALS: BP 161/91
[2023-02-28 23:30] VITALS: BP 198/97
[2023-02-28 23:47] VITALS: BP 184/90
[2023-03-01] VITALS (17 sets, daily range): BP systolic 148–211; BP diastolic 67–110
--- NOTE | 2023-03-01 02:03 | NUR ---
ORACLE AGILE PLM CONSULTANT INFORMED THIS DRIER TENDER NAPHTHALENE THAT BP AND HR ARE NOT COMMING DOWN EXPECTED AFTER 2.5L REMOVAL. MD NOTIFIED AND NEW HYDRALAZINE ORDER PLACED.
--- NOTE | 2023-03-01 05:36 | NUR ---
PATIENT IS CONFUSED, NOT ABLE TO ASSESS ORIENTATION, VERY WEAK AND STIFF IN BED. BED REST THROUGHOUT THE NIGHT. DIALYSIS COMPLETED UPON ADMISSION WITHOUT RESOLVE TO HTN AND HR, PRN HYDRALAZINE ADMINISTERED PER ORDER. LUNGS DIM, HR IRREGULAR, PLACED ON TELE RUNNING ST. NO OTHER ISSUES TO REPORT.
[2023-03-01 06:03] LABS: BASOPHILS ABSOLUTE AUTO 0.03 K/mm3 (0.00-0.23); BASOPHILS PERCENT AUTO 1 % (0-2); EOSINOPHILS ABSOLUTE AUTO 0.01 K/mm3 (0.00-0.68); EOSINOPHILS PERCENT AUTO 0 % (0-6); Hematocrit 31.9 % (37.0-53.0); Hemoglobin 11.1 g/dL (13.5-17.5); IMMATURE GRAN ABSOLUTE AUTO 0.01 K/mm3 (0.00-0.10); IMMATURE GRAN PERCENT AUTO 0 % (0-1); LYMPHOCYTES ABSOLUTE AUTO 0.26 K/mm3 (0.84-5.20); LYMPHOCYTES PERCENT AUTO 5 % (21-46); MONOCYTES ABSOLUTE AUTO 0.64 K/mm3 (0.16-1.47); MONOCYTES PERCENT AUTO 12 % (4-13); Mean Corpuscular HGB 34.4 pg (26.0-34.0); Mean Corpuscular HGB Conc 34.8 g/dL (31.5-36.5); Mean Corpuscular Volume 99 fL (80-100); Mean Platelet Volume 9.3 fL (9.1-12.4); NEUTROPHILS ABSOLUTE AUTO 4.27 K/mm3 (1.96-9.15); NEUTROPHILS PERCENT AUTO 82 % (41-73); Platelet Count 130 K/mm3 (150-400); RDW Coefficient Variation 13.6 % (11.7-14.2); RDW Standard Deviation 48.6 fL (35.1-46.3); Red Blood Cell Count 3.23 M/mm3 (4.30-5.90); White Blood Cell Count 5.22 K/mm3 (4.00-11.30)
[2023-03-01 06:36] LABS: Albumin, Blood 3.1 g/dL (3.4-5.0); Anion Gap 8 mmol/L (6-16); Blood Urea Nitrogen 42 mg/dL (8-24); Bun/Creatinine Ratio 5.3 (12.0-20.0); CO2, Blood 28 mmol/L (21-32); Calcium, Blood 9.6 mg/dL (8.5-10.1); Chloride, Blood 92 mmol/L (98-108); Creatinine, Blood 7.87 mg/dL (0.60-1.20); Glomerular Filtration Rate 7 (60-); Glucose, Blood 124 mg/dL (70-99); Magnesium, Blood 1.9 mg/dL (1.6-2.4); Phosphorus, Blood 3.1 mg/dL (2.5-4.9); Potassium, Blood 4.7 mmol/L (3.5-5.5); Sodium, Blood 128 mmol/L (136-145)
[2023-03-01 12:58] LABS: Thyroid Stimulating Hormone 0.372 uIU/mL (0.360-4.800)
--- NOTE | 2023-03-01 18:29 | NUR ---
SHIFT SUMMARY: PT A&O X2-3. PT HAS BEEN PLEASANT AND COOPERATIVE WITH CARE. PT WAS VERY LETHARGIC THIS MORNING BUT WOKE UP WHEN WORKING WITH PT AND OT. PT LEFT UPPER ARM FISTULA AND STERI STRIPS BLOODY THIS AM BLEEDING ONTO SHEETS AND PILLOW. STERI STRIPS REPLACED AND AREA CLEANED. PT ONE PERSON MIN ASSIST WITH TRANSFERS. PT ABLE TO WALK WITH WALKED BUT STILL WEAK AND UNSTEADY ON FEEL. PT TO RECEIVE HEMODIALYSIS TOMORROW. CAMERA ON IN ROOM DUE TO CONFUSION AND WANTED TO CONSTANTLY GET OUT OF BED ON OWN. CALL LIGHT IN REACH. BED IN LOWEST POSITION. WILL CONTINUE TO MONITOR.
[2023-03-02] VITALS (20 sets, daily range): BP systolic 106–178; BP diastolic 56–100
[2023-03-02 05:01] LABS: Hematocrit 32.8 % (37.0-53.0); Hemoglobin 11.4 g/dL (13.5-17.5)
--- NOTE | 2023-03-02 05:10 | NUR ---
PATIENT SLEPT WELL THROUGH THE NIGHT, ORIENTATION LEVEL FLUCTUATED, VERY PLEASANT AND COOPERATIVE. TELE NS, PIV SL'D, LUNGS CLEAR BUT DIM, NOT ABLE TO HOLD SELF UP IN BED IN THE SEATED POSITION SO WE DID NOT ATTEMPT TO GET OUT. FITULA STERI STRIPS WERE REPLACED ON DAY SHIFT, AND I WRAPPED ARM FOR STRIP PROTECTION, HEALING WELL WITH NO SIGNS OF INFECTION. HTN, PRNS AVAILABLE BUT NOT NEEDED. DIALYSIS TO BE COMPLETED TODAY. NO OTHER ISSUES TO REPORT.
[2023-03-02 05:30] LABS: Magnesium, Blood 2.2 mg/dL (1.6-2.4)
[2023-03-02 05:32] LABS: Anion Gap 5 mmol/L (6-16); Blood Urea Nitrogen 64 mg/dL (8-24); CO2, Blood 31 mmol/L (21-32); Calcium, Blood 9.8 mg/dL (8.5-10.1); Chloride, Blood 92 mmol/L (98-108); Glucose, Blood 143 mg/dL (70-99); Phosphorus, Blood 5.2 mg/dL (2.5-4.9); Potassium, Blood 4.9 mmol/L (3.5-5.5); Sodium, Blood 128 mmol/L (136-145)
[2023-03-02 05:34] LABS: Glomerular Filtration Rate 5 (60-)
--- NOTE | 2023-03-02 16:58 | NUR ---
SOMEONE CALLED STATES NAME FÁTIMA SALAZAR FROM [facility] WANTED UPATES FROM ME RE PT. PT IS ON DIALYSIS AND WOULD UPDATE THROUGH DR GRECO OR TOPOGRAPHICAL DRAFTER AT [facility], ASKED PT IF KNOWS THIS PERSON. HE STATES DOES NOT. DID NOT AUTHORIZE ME TO TALK TO HIM. DID NOT GIVE ANY SOLID INFORMATION
--- NOTE | 2023-03-02 18:10 | NUR ---
CALLED DR POPE. B/P UP SOME, H/R PER TELE 114. NO CHANGES ON TELE. PT DID THROW UP. RESP 18. STATES HE IS OKAY. TEMP UP AT 101.5 ORAL . GAVE ZOFRAN, AND TYLENOL. ADVISED DR POPE. NO NEW ORDERS
--- NOTE | 2023-03-02 18:30 | NUR ---
PT DID GO TO DIALYSIS TODAY. BP WAS UP THIS AM. QUITE LOW DURING AND AFTER DIALYSIS. DID THROW UP THIS VALERIA. MED WITH ZOFRAN. TEMP UP. MED WITH TYLENOL. THIS HAS IMPROVED. ABD SOMEWHAT TENDER, DISCUSSED PT WITH DR POPE THIS VALERIA. NO NEW ORDERS. BED IN LOW POSITIOIN, CALL LITE IN REACH, CALLS APPRP
[2023-03-03 04:48] LABS: Hematocrit 35.2 % (37.0-53.0); Hemoglobin 11.9 g/dL (13.5-17.5); Mean Corpuscular HGB Conc 33.8 g/dL (31.5-36.5); Mean Corpuscular Volume 101 fL (80-100); Mean Platelet Volume 10.3 fL (9.1-12.4); Platelet Count 109 K/mm3 (150-400); RDW Coefficient Variation 13.2 % (11.7-14.2); White Blood Cell Count 4.87 K/mm3 (4.00-11.30)
[2023-03-03 05:13] LABS: Albumin, Blood 2.9 g/dL (3.4-5.0); Anion Gap 5 mmol/L (6-16); Blood Urea Nitrogen 49 mg/dL (8-24); CO2, Blood 32 mmol/L (21-32); Calcium, Blood 9.6 mg/dL (8.5-10.1); Chloride, Blood 92 mmol/L (98-108); Creatinine, Blood 8.15 mg/dL (0.60-1.20); Glomerular Filtration Rate 7 (60-); Glucose, Blood 130 mg/dL (70-99); Phosphorus, Blood 4.7 mg/dL (2.5-4.9); Potassium, Blood 4.4 mmol/L (3.5-5.5); Sodium, Blood 129 mmol/L (136-145)
[2023-03-03 05:27] LABS: BAND PERCENT MAN 18 % (0-8); BASOPHILS ABSOLUTE MAN 0.04 K/mm3 (0.00-0.23); BASOPHILS PERCENT MAN 1 % (0-2); EOSINOPHILS PERCENT MAN 0 % (0-6); LYMPHOCYTES ABSOLUTE MAN 0.04 K/mm3 (0.84-5.20); LYMPHOCYTES PERCENT MAN 1 % (21-46); MONOCYTES ABSOLUTE MAN 0.43 K/mm3 (0.16-1.47); MONOCYTES PERCENT MAN 9 % (4-13); NEUTROPHILS ABSOLUTE MAN 4.33 K/mm3 (1.96-9.15); SEG NEUTROPHILS PERCENT MAN 71 % (41-73); TOTAL CELLS COUNTED 100
--- NOTE | 2023-03-03 05:49 | NUR ---
SHIFT SUMMARY EMILE HAD SOME TROUBLE TO GETTING TO SLEEP. MENTATION IS AXO 3, BUT CAN BECOME CONFUSED WHEN WOKEN UP AND WILL SLIDE HIS FEET TO THE EDGE OF THE BED TO GET OUT. HE DOES NOT MAKE URINE. PT WAS COMPLAINING OF ABDOMINAL PAIN, BUT AFTER PASSING GAS HE STATES HE FELT MUCH BETTER AND THE PRESSURE ON HIS SCAR HAD RESOLVED. PT WAS ADVISED AGAINST DRINKING DARK SODA WITH HIS KIDNEY ISSUES WHICH HE AGREED HE KNEW BUT FOUND IT HARD TO RESIST. BED IN LOWES POSITION AND CALL LIGHT IN REACH.
[2023-03-03 07:25] VITALS: BP 149/97
[2023-03-03 14:43] VITALS: BP 133/74
--- NOTE | 2023-03-03 17:13 | NUR ---
PT QUITE PLEASANT TODAY. HE HAS IMPROVED TODAY. MENTATION MOSTLY CLEARED. AMBULATED TO BATHROOM TODAY. DR GRECO IN TO SEE PT THIS AFT. EXPECTING D/C TOMORROW AFTER DIALYSIS. NO NEW CONCERNS NOTED TODAY. DR POPE DID START MEDS FOR STOOL TODAY. BED IN LOW POSITION, CALL LITE IN REACH. CALLS APPROP
[2023-03-03 19:39] VITALS: BP 152/71
[2023-03-04] VITALS (16 sets, daily range): BP systolic 86–153; BP diastolic 32–97
--- NOTE | 2023-03-04 04:47 | NUR ---
SHIFT SUMMARY NO ACUTE CHANGED. EMILE SLEPT THROUGH THE NIGHT. NO BOWEL MOVEMENT THIS SHIFT. PT INSISTS HE WENT YETERDAY THOUGH NO STAFF SAW IT. ABD IS SOFT AND HE IS NOT IN ANY DISCOMFORT. BED IN THE LOWEST POSITIN AND CALL LIGHT IN REACH.
[2023-03-04 05:09] LABS: BASOPHILS ABSOLUTE AUTO 0.03 K/mm3 (0.00-0.23); BASOPHILS PERCENT AUTO 1 % (0-2); EOSINOPHILS ABSOLUTE AUTO 0.32 K/mm3 (0.00-0.68); EOSINOPHILS PERCENT AUTO 6 % (0-6); Hematocrit 31.2 % (37.0-53.0); IMMATURE GRAN ABSOLUTE AUTO 0.04 K/mm3 (0.00-0.10); IMMATURE GRAN PERCENT AUTO 1 % (0-1); LYMPHOCYTES ABSOLUTE AUTO 0.37 K/mm3 (0.84-5.20); LYMPHOCYTES PERCENT AUTO 7 % (21-46); MONOCYTES ABSOLUTE AUTO 0.75 K/mm3 (0.16-1.47); MONOCYTES PERCENT AUTO 14 % (4-13); Mean Corpuscular HGB 34.3 pg (26.0-34.0); Mean Corpuscular HGB Conc 35.3 g/dL (31.5-36.5); Mean Corpuscular Volume 97 fL (80-100); Mean Platelet Volume 10.6 fL (9.1-12.4); NEUTROPHILS PERCENT AUTO 72 % (41-73); Platelet Count 108 K/mm3 (150-400); RDW Coefficient Variation 13.2 % (11.7-14.2); RDW Standard Deviation 47.3 fL (35.1-46.3); Red Blood Cell Count 3.21 M/mm3 (4.30-5.90); White Blood Cell Count 5.41 K/mm3 (4.00-11.30)
[2023-03-04 05:39] LABS: Magnesium, Blood 1.9 mg/dL (1.6-2.4)
[2023-03-04 05:49] LABS: Albumin, Blood 2.7 g/dL (3.4-5.0); Anion Gap 7 mmol/L (6-16); Blood Urea Nitrogen 73 mg/dL (8-24); CO2, Blood 29 mmol/L (21-32); Calcium, Blood 9.5 mg/dL (8.5-10.1); Chloride, Blood 89 mmol/L (98-108); Glucose, Blood 118 mg/dL (70-99); Phosphorus, Blood 2.8 mg/dL (2.5-4.9); Potassium, Blood 4.4 mmol/L (3.5-5.5); Sodium, Blood 125 mmol/L (136-145)
[2023-03-04 05:51] LABS: Bun/Creatinine Ratio 7.2 (12.0-20.0); Glomerular Filtration Rate 5 (60-)
--- NOTE | 2023-03-04 09:57 | NUR ---
Cannulation- Pt. now running on Dialysis with difficulty. Inserted lower portion of fistula with black blood returned in arterial needle. Pulled needle and stuck above, with success. Will advise the Dialysis clinic of need of experienced PCT/RN to be the one to cannulate this pts fistula.
--- NOTE | 2023-03-04 18:42 | NUR ---
PT QUITE SLEEPY TODAY. HAD DIALYSIS AND SLEPT MOST OF DAY. NOW AWAKENING MORE. TALKING CLEARLY TO STAFF. EATING DINNER. DR POPE MENTIONED MAY KEEP UNTIL TOMORROW FOR DISCHARGE PENDING BLOOD RESULTS. NO TEMPS NOTED TODAY. AMBULATES SBA TO BATHROOM. BED IN LOW POSITION, CALL LITE IN REACH, CALLS APPROP
--- NOTE | 2023-03-05 04:16 | NUR ---
SHIFT UNREMARKABLE. PT HAS BEEN RESTING COMFORTABLY IN BED THROUGHOUT SHIFT. PT REPORTS HAVING LARGE BOWEL MOVEMENT YESTERDAY ON DAY SHIFT AND HAS NOT HAD ANY ABDOMINAL DISCOMFORT SINCE. ABDOMEN SOFT, NONDISTENDED, NOT TENDER ON ASSESSMENT. PT HAS CONTINUED TO DENY ANY PAIN/DISCOMFORT THROUGHOUT SHIFT. FISTULA ON ROSELINE REMAINS WRAPPED WITH DRESSING C/D/I. BED ALARM IS ON AND PT HAS THUS FAR NOT BEEN IMPULSIVE ON THIS SHIFT. BED LOCKED IN LOWEST POSITION. CALL LIGHT LEFT WITHIN REACH.
[2023-03-05 05:30] LABS: Hematocrit 31.7 % (37.0-53.0); Hemoglobin 10.9 g/dL (13.5-17.5)
[2023-03-05 05:31] VITALS: BP 155/91
[2023-03-05 05:50] LABS: Albumin, Blood 2.5 g/dL (3.4-5.0); Anion Gap 4 mmol/L (6-16); Blood Urea Nitrogen 53 mg/dL (8-24); Bun/Creatinine Ratio 6.8 (12.0-20.0); CO2, Blood 33 mmol/L (21-32); Calcium, Blood 9.5 mg/dL (8.5-10.1); Chloride, Blood 93 mmol/L (98-108); Creatinine, Blood 7.83 mg/dL (0.60-1.20); Glomerular Filtration Rate 7 (60-); Glucose, Blood 123 mg/dL (70-99); Magnesium, Blood 1.9 mg/dL (1.6-2.4); Sodium, Blood 130 mmol/L (136-145)
[2023-03-05 07:29] VITALS: BP 175/71
[2023-03-05 11:22] VITALS: BP 147/82
[2023-03-05 15:40] VITALS: BP 170/78
[2023-03-05] MEDS ORDERED: VISBIOME 112.51 EACH PO (18:11)
[2023-03-05] MEDS ORDERED: AMOCLA875 PO (18:12)
--- NOTE | 2023-03-05 18:43 | NUR ---
SHIFT SUMMARY DISCHARGE INSTRUCTIONS COMPLETED AND DISCUSSED WITH PT EXPRESSING UNDERSTANDING. WAITING FOR SISTER TO COME PICK PT UP. WILL REPORT CONDITION TO ONCOMING SHIFT.
== END 2023-03-05 19:18 | disposition home or self-care (01) | DRG 640 ==
LOC: ER 16:53 → MEDS 20:56
PROVIDERS: Emergency Medicine; Internal Medicine; Internal Medicine Nephrology; ADMIT Student in an Organized Health Care Education/Training Program
PROC: 5A1D70Z Performance of Urinary Filtration, Intermittent, Less than 6 Hours Per Day (ICD-10-PCS; principal; 2023-03-01)
DX: E87.5 Hyperkalemia (principal); G92.8 Other toxic encephalopathy; N18.6 End stage renal disease; I13.2 Hypertensive heart and chronic kidney disease with heart failure and with stage 5 chronic kidney disease, or end stage renal disease; N25.81 Secondary hyperparathyroidism of renal origin; T82.838A Hemorrhage due to vascular prosthetic devices, implants and grafts, initial encounter; E87.1 Hypo-osmolality and hyponatremia; I50.9 Heart failure, unspecified; E03.9 Hypothyroidism, unspecified; E86.9 Volume depletion, unspecified; E88.09 Other disorders of plasma-protein metabolism, not elsewhere classified; D69.6 Thrombocytopenia, unspecified; D63.1 Anemia in chronic kidney disease; K59.00 Constipation, unspecified; E87.70 Fluid overload, unspecified; R50.9 Fever, unspecified; B18.2 Chronic viral hepatitis C; D72.825 Bandemia; E83.39 Other disorders of phosphorus metabolism; M10.9 Gout, unspecified; Y83.8 Other surgical procedures as the cause of abnormal reaction of the patient, or of later complication, without mention of misadventure at the time of the procedure; Z20.822 Contact with and (suspected) exposure to COVID-19; Z87.891 Personal history of nicotine dependence; Z90.49 Acquired absence of other specified parts of digestive tract; Z98.890 Other specified postprocedural states; Z99.2 Dependence on renal dialysis; Z79.2 Long term (current) use of antibiotics; Z79.899 Other long term (current) drug therapy; Z79.891 Long term (current) use of opiate analgesic; Z87.19 Personal history of other diseases of the digestive system
CPT/HCPCS: 0241U; 36415; 70450; 71045; 74176; 80053; 80069; 82140; 82533; 82607; 82947; 83605; 83690; 83735; 84145; 84443; 84484; 85014; 85018; 85025; 87040; 93005; 93010; 93990; 97162; 97166; 99285-25; A9270; G0480; J0360; J0696; J1644; J2405; J7060

== ENCOUNTER 2023-03-07 06:55 | Observation (INO) | payer MEDICARE ==
[2023-03-07] VITALS (31 sets, daily range): BP systolic 62–129; BP diastolic 46–88
[~2023-03-07] VITALS: Ht 172.7 cm; Wt 88.5 kg
[~2023-03-07 06:55] MED LIST changes: +AMOCLA875 PO
[2023-03-07 07:17] LABS: BASOPHILS ABSOLUTE AUTO 0.05 K/mm3 (0.00-0.23); BASOPHILS PERCENT AUTO 1 % (0-2); EOSINOPHILS ABSOLUTE AUTO 0.54 K/mm3 (0.00-0.68); EOSINOPHILS PERCENT AUTO 8 % (0-6); Hematocrit 28.7 % (37.0-53.0); Hemoglobin 10.1 g/dL (13.5-17.5); IMMATURE GRAN ABSOLUTE AUTO 0.04 K/mm3 (0.00-0.10); IMMATURE GRAN PERCENT AUTO 1 % (0-1); LYMPHOCYTES ABSOLUTE AUTO 0.61 K/mm3 (0.84-5.20); LYMPHOCYTES PERCENT AUTO 9 % (21-46); MONOCYTES ABSOLUTE AUTO 0.87 K/mm3 (0.16-1.47); MONOCYTES PERCENT AUTO 13 % (4-13); Mean Corpuscular HGB 34.2 pg (26.0-34.0); Mean Corpuscular HGB Conc 35.2 g/dL (31.5-36.5); Mean Corpuscular Volume 97 fL (80-100); Mean Platelet Volume 10.7 fL (9.1-12.4); NEUTROPHILS ABSOLUTE AUTO 4.78 K/mm3 (1.96-9.15); NEUTROPHILS PERCENT AUTO 69 % (41-73); Platelet Count 201 K/mm3 (150-400); RDW Coefficient Variation 13.6 % (11.7-14.2); RDW Standard Deviation 48.1 fL (35.1-46.3); Red Blood Cell Count 2.95 M/mm3 (4.30-5.90); White Blood Cell Count 6.89 K/mm3 (4.00-11.30)
[2023-03-07 07:41] LABS: Bun/Creatinine Ratio 7.9 (12.0-20.0); Calcium, Blood 9.5 mg/dL (8.5-10.1); Creatinine, Blood 11.7 mg/dL (0.60-1.20); Potassium, Blood 4.2 mmol/L (3.5-5.5)
[2023-03-07] MEDS ORDERED: CARV3.125 PO (08:42)
[2023-03-07] MEDS ORDERED: CATAPRES0.1 MG PO (08:45)
--- NOTE | 2023-03-07 10:11 | NUR ---
LATE ENTRY- ADMIT FROM ER PT ADMITTED FROM ER. PT IS ALERT AND ORIENTED X4 BUT SEEMS TO BE LOOPY. PT DENIES DIZZYNESS. EDUCATION PROVIDED ON IMPORTANCE OF CALLING USING THE CALL LIGHT BECAUSE HE A HIGH FALL RISK. CALL LIGHT IN REACH BED IS THE LOWEST POSTION WITH BED ALARM ON.
--- NOTE | 2023-03-07 13:59 | NUR ---
THE PATIENT WAS BROUGHT TO DAY SURGERY FOR HIS PROCEDURE.
--- NOTE | 2023-03-07 18:04 | NUR ---
SHIFT SUMMARY- PT IS CURRENTLY RECIEVING DIALYSIS AT BEDSIDE. PERM CATH PLACED TODAY. VITALS STABLE. PT IS ALERT AND ORIENTED X4. CAN MAKE NEEDS KNOWN. CALL LIGHT IS IN REACH
[2023-03-07] MEDS ORDERED: AMOCLA875 PO (19:53)
[2023-03-07] MEDS ORDERED: LOSA50 PO (19:53)
[2023-03-07] MEDS ORDERED: Rena-Vite Tabl0.8 MG PO (19:54)
[2023-03-08 01:35] VITALS: BP 114/59
--- NOTE | 2023-03-08 04:42 | NUR ---
BEDSIDE REPORT DONE WITH PATIENT- PT SITTING UP IN BED EATING DINNER AT TIME OF REPORT- LOOM SETTER AT BEDSIDE - PT CURRENTLY HAVING DIALYSIS- PT REPORTED PAIN IN BILAT THIGHS- PT REPORTED PAIN STARTED YESTERDAY- GAVE TYLENOL- DIALYSIS NURSE CHANGED BANDAGE TO NEW PERMACATH - PT TOLERATED WELL, PT SINUS RHYTHM ON TELE- PT NO VOID- PER PT NORMAL D/T DIALYSIS- PT TURNED SELF IN BED T/O NIGHT, BED LOW POSITION, CALL LIGHT WITHIN REACH
[2023-03-08 04:58] LABS: Hematocrit 27.1 % (37.0-53.0); Hemoglobin 9.5 g/dL (13.5-17.5)
[2023-03-08 05:20] LABS: Albumin, Blood 2.5 g/dL (3.4-5.0); Anion Gap 6 mmol/L (6-16); Blood Urea Nitrogen 39 mg/dL (8-24); Bun/Creatinine Ratio 6.3 (12.0-20.0); CO2, Blood 30 mmol/L (21-32); Calcium, Blood 8.9 mg/dL (8.5-10.1); Chloride, Blood 95 mmol/L (98-108); Creatinine, Blood 6.23 mg/dL (0.60-1.20); Glomerular Filtration Rate 9 (60-); Glucose, Blood 126 mg/dL (70-99); Magnesium, Blood 1.9 mg/dL (1.6-2.4); Phosphorus, Blood 3.9 mg/dL (2.5-4.9); Potassium, Blood 3.9 mmol/L (3.5-5.5); Sodium, Blood 131 mmol/L (136-145)
[2023-03-08 05:29] VITALS: BP 151/90
[2023-03-08 10:03] VITALS: BP 125/82
[2023-03-08] MEDS ORDERED: AMLO5 PO (10:45)
--- NOTE | 2023-03-08 10:47 | NUR ---
VITALS REVIELED ELEVATED TEMPERATURE. REMOVED BLANKETS AND WILL REASSESS PT AND VITALS BEFORE DISCHARGING
[2023-03-08 11:04] VITALS: BP 155/71
--- NOTE | 2023-03-08 11:07 | NUR ---
ASSESSMENT- PT SLEEPY BUT AROUSABLE. ORIENTED X4. RECHECKED VITALS- BP AND HR ELEVATED. TEMP SLIGHTLY ELEVATED BUT TRENDING DOWN AFTER REMOVING BLANKETS. MD NOTIFIED. WILL CONTINUE TO MONITOR PT FOR CHANGES IN LOC AND VITALS FOR THE NEXT TWO HOURS. NURSE TO UPDATE .
[2023-03-08 12:12] VITALS: BP 136/87
--- NOTE | 2023-03-08 12:47 | NUR ---
UPDATE REASSESSED PT. PT MORE ALERT AND IS ORIENTED X4. VITALS WNL. MD AT BEDSIDE. OK TO DISCHARGE.
--- NOTE | 2023-03-08 13:27 | NUR ---
DISCHARGE PT DISCHARGED HOME. PT IS ALERT AND ORIENTED X4. DISCUSSED DISCHARGE INSTUCTIONS WITH PT. PT INSTRUCTED TO RESTART DIALYSIS TOMORROW. NO QUESTIONS AT THIS TIME
== END 2023-03-08 13:28 | disposition home or self-care (01) ==
LOC: ER 06:55 → MEDS 06:56
PROVIDERS: Emergency Medicine; Internal Medicine Nephrology; ADMIT Family Medicine
DX: T82.590A Other mechanical complication of surgically created arteriovenous fistula, initial encounter (principal); Y71.8 Miscellaneous cardiovascular devices associated with adverse incidents, not elsewhere classified; E87.1 Hypo-osmolality and hyponatremia; I95.9 Hypotension, unspecified; R00.1 Bradycardia, unspecified; D64.9 Anemia, unspecified; I13.2 Hypertensive heart and chronic kidney disease with heart failure and with stage 5 chronic kidney disease, or end stage renal disease; N18.6 End stage renal disease; I50.9 Heart failure, unspecified; J44.9 Chronic obstructive pulmonary disease, unspecified; E03.9 Hypothyroidism, unspecified; Z79.890 Hormone replacement therapy; Z79.899 Other long term (current) drug therapy
CPT/HCPCS: 36415; 77001; 80048; 80069; 83735; 85014; 85018; 85025; 93005; 93010; 96372; 99285-25; A9270; C1750; G0257; G0378; J0690; J0881; J1644; J2250; J2704; J3010; J7030

== ENCOUNTER 2023-03-12 00:30 | Emergency (ER) | payer MEDICARE ==
[~2023-03-12] VITALS: Ht 182.9 cm; Wt 83.9 kg
[~2023-03-12 00:30] MED LIST changes: +AMLO5 PO; +CATAPRES0.1 MG PO; +Rena-Vite Tabl0.8 MG PO
[2023-03-12 01:54] LABS: BASOPHILS ABSOLUTE AUTO 0.05 K/mm3 (0.00-0.23); BASOPHILS PERCENT AUTO 0 % (0-2); EOSINOPHILS PERCENT AUTO 2 % (0-6); Hematocrit 24.7 % (37.0-53.0); Hemoglobin 8.5 g/dL (13.5-17.5); IMMATURE GRAN ABSOLUTE AUTO 0.15 K/mm3 (0.00-0.10); IMMATURE GRAN PERCENT AUTO 1 % (0-1); LYMPHOCYTES ABSOLUTE AUTO 0.64 K/mm3 (0.84-5.20); LYMPHOCYTES PERCENT AUTO 4 % (21-46); MONOCYTES ABSOLUTE AUTO 1.22 K/mm3 (0.16-1.47); MONOCYTES PERCENT AUTO 8 % (4-13); Mean Corpuscular HGB Conc 34.4 g/dL (31.5-36.5); Mean Corpuscular Volume 99 fL (80-100); Mean Platelet Volume 9.6 fL (9.1-12.4); NEUTROPHILS ABSOLUTE AUTO 13.38 K/mm3 (1.96-9.15); NEUTROPHILS PERCENT AUTO 85 % (41-73); Platelet Count 304 K/mm3 (150-400); RDW Coefficient Variation 14.1 % (11.7-14.2); RDW Standard Deviation 50.7 fL (35.1-46.3); White Blood Cell Count 15.74 K/mm3 (4.00-11.30)
[2023-03-12 02:01] LABS: Magnesium, Blood 1.8 mg/dL (1.6-2.4)
[2023-03-12 02:05] LABS: Albumin, Blood 2.3 g/dL (3.4-5.0); Albumin/Globulin Ratio 0.6 (0.8-1.8); Bilirubin, Total 1.1 mg/dL (0.1-1.0); Bun/Creatinine Ratio 8.7 (12.0-20.0); Calcium, Blood 9.6 mg/dL (8.5-10.1); Creatinine, Blood 8.67 mg/dL (0.60-1.20); Total Protein, Blood 6.3 g/dL (6.4-8.2)
[2023-03-12 04:20] VITALS: BP 106/65
== END 2023-03-12 04:33 | disposition home or self-care (01) ==
LOC: ER 00:30
PROVIDERS: Student in an Organized Health Care Education/Training Program
DX: R52 Pain, unspecified (principal); D72.829 Elevated white blood cell count, unspecified; Z79.899 Other long term (current) drug therapy; N18.6 End stage renal disease; I13.2 Hypertensive heart and chronic kidney disease with heart failure and with stage 5 chronic kidney disease, or end stage renal disease; I50.9 Heart failure, unspecified; E03.9 Hypothyroidism, unspecified; M10.9 Gout, unspecified; Z87.891 Personal history of nicotine dependence
CPT/HCPCS: 36415; 71045; 80053; 83605; 83735; 85025; 93005; 93010; 96374; 96375; 99284-25; A9270; J0696; J3010

== ENCOUNTER 2023-03-27 11:00 | Day surgery (SDC) | payer MEDICARE ==
[2023-03-27] VITALS (10 sets, daily range): BP systolic 152–191; BP diastolic 63–98
[~2023-03-27] VITALS: Ht 182.9 cm; Wt 88.5 kg
[~2023-03-27 11:00] MED LIST changes: +BENADRYL25 MG PO; +MERIBIN5 MG PO
--- NOTE | 2023-03-27 13:50 | NUR ---
PATIENT ARRIVED TO ROOM SITTING UPRIGHT IN BED. 2 L ARM FISTULA SITES IN PLACE WITH SLIP KNOT DEVICES. SITE C/D/I, THRILL PRESENT. PATIENT DENYING ANY PAIN. VSS ON ROOM AIR.
--- NOTE | 2023-03-27 14:30 | NUR ---
PATIENT TOLERATING PO INTAKE WELL. L ARM FISTULA SITES C/D/I. 2 SLIP KNOT DEVICES IN PALCE, NO BLEEDING PRESENT. THRILL PRESENT. VSS ON ROOM AIR.
--- NOTE | 2023-03-27 16:00 | NUR ---
PATIENT RESTING COMFORTABLY IN BED. 2 LEFT ARM FISTULA SITES D/I WITH SLIP KNOTS IN PLACE. VSS ON ROOM AIR. PATIENT TOLERATING PO INTAKE WELL.
--- NOTE | 2023-03-27 17:02 | NUR ---
2 SLIP KNOTS REMOVED FROM L ARM. SOME OZZING NOTED, MANUAL PRESSURE APPLIED. ACE DRESSING WITH TEGADERM APPLIED. DISCHARGE INSTRUCTIONS REVIEWED WITH PATIENT, ALL QUESTIONS WERE ANSWERED. VSS ON ROOM AIR. PIV REMOVED WITHOUT DIFFICULTY, CATHETER INTACT
--- NOTE | 2023-03-27 17:12 | NUR ---
PATIENT DISCHARGED HOME AT THIS TIME. ALL PATIENT BELONGINGS AND PAPERWORK LEFT WITH PATIENT. PATIENT WHEELED TO HOSPITAL ENTRANCE AND SISTER ABLE TO TRANSPORT PATIENT HOME.
== END 2023-03-27 17:15 | disposition home or self-care (01) ==
LOC: MHTC 11:00
DX: T82.590A Other mechanical complication of surgically created arteriovenous fistula, initial encounter (principal); Y71.8 Miscellaneous cardiovascular devices associated with adverse incidents, not elsewhere classified; I13.2 Hypertensive heart and chronic kidney disease with heart failure and with stage 5 chronic kidney disease, or end stage renal disease; N18.6 End stage renal disease; I50.9 Heart failure, unspecified; E03.9 Hypothyroidism, unspecified; B18.2 Chronic viral hepatitis C; Z87.891 Personal history of nicotine dependence; Z79.890 Hormone replacement therapy; Z79.899 Other long term (current) drug therapy
CPT/HCPCS: 76937; 99152; 99153; C1725; C1769; C1887; C1894; J1644; J2250; J3010; J7030; J7040; Q9967

== ENCOUNTER 2023-04-19 21:35 | Inpatient (IN) | payer MEDICARE ==
[~2023-04-19] VITALS: Ht 190.5 cm; Wt 84.7 kg
[~2023-04-19 21:35] MED LIST changes: +LORA10ER PO
[2023-04-19 22:05] LABS: BASOPHILS ABSOLUTE AUTO 0.08 K/mm3 (0.00-0.23); BASOPHILS PERCENT AUTO 1 % (0-2); EOSINOPHILS ABSOLUTE AUTO 0.02 K/mm3 (0.00-0.68); EOSINOPHILS PERCENT AUTO 0 % (0-6); Hematocrit 34.6 % (37.0-53.0); Hemoglobin 11.7 g/dL (13.5-17.5); IMMATURE GRAN ABSOLUTE AUTO 0.08 K/mm3 (0.00-0.10); IMMATURE GRAN PERCENT AUTO 1 % (0-1); LYMPHOCYTES ABSOLUTE AUTO 0.32 K/mm3 (0.84-5.20); LYMPHOCYTES PERCENT AUTO 3 % (21-46); MONOCYTES ABSOLUTE AUTO 0.76 K/mm3 (0.16-1.47); MONOCYTES PERCENT AUTO 7 % (4-13); Mean Corpuscular HGB 33.7 pg (26.0-34.0); Mean Corpuscular HGB Conc 33.8 g/dL (31.5-36.5); Mean Corpuscular Volume 100 fL (80-100); Mean Platelet Volume 9.5 fL (9.1-12.4); NEUTROPHILS ABSOLUTE AUTO 10.43 K/mm3 (1.96-9.15); NEUTROPHILS PERCENT AUTO 89 % (41-73); Platelet Count 132 K/mm3 (150-400); RDW Coefficient Variation 13.9 % (11.7-14.2); RDW Standard Deviation 49.1 fL (35.1-46.3); Red Blood Cell Count 3.47 M/mm3 (4.30-5.90); White Blood Cell Count 11.69 K/mm3 (4.00-11.30)
[2023-04-19 22:36] LABS: Albumin, Blood 3.2 g/dL (3.4-5.0); Albumin/Globulin Ratio 0.8 (0.8-1.8); Bilirubin, Total 0.8 mg/dL (0.1-1.0); Bun/Creatinine Ratio 6.4 (12.0-20.0); Calcium, Blood 9.7 mg/dL (8.5-10.1); Creatinine, Blood 7.15 mg/dL (0.60-1.20); Globulin, Blood 4.2 g/dL (2.2-4.0); Magnesium, Blood 1.8 mg/dL (1.6-2.4); Potassium, Blood 5.1 mmol/L (3.5-5.5); Thyroid Stimulating Hormone 1.95 uIU/mL (0.360-4.800); Total Protein, Blood 7.4 g/dL (6.4-8.2)
[2023-04-19 22:48] LABS: Influenza A, PCR NEGATIVE (NEGATIVE); Influenza B, PCR NEGATIVE (NEGATIVE); Resp Syncytial Virus, PCR NEGATIVE (NEGATIVE); SARS-Cov-2 (COVID-19) PCR, MMC NEGATIVE (NEGATIVE)
[2023-04-19 23:20] LABS: Source, Urine Foley catheter
[2023-04-19 23:23] LABS: Bilirubin, Urine Neg (Neg); Blood, Urine Neg (Neg); Glucose Qualitative, Urine Neg (Neg); Ketones, Urine Neg (Neg); Leukocyte Esterase, Urine Neg (Neg); Nitrite, Urine Neg (Neg); Protein, Urine 3+ (Neg); Urobilinogen, Urine NORM (Normal)
[2023-04-19 23:28] LABS: Appearance, Urine Clear (Clear); Color, Urine Yellow (P-Yellow)
[2023-04-19 23:30] LABS: Amorphous Light (0-Heavy); Bacteria Few /hpf; Squamous Epithelial Cells Rare /hpf (Few); White Blood Cells, Urine 0-2 /hpf (0-5)
[2023-04-19 23:31] LABS: Red Blood Cells, Urine Not Seen /hpf (0-2)
[2023-04-20] VITALS (18 sets, daily range): BP systolic 96–178; BP diastolic 54–94
[2023-04-20] MEDS ORDERED: Rena-Vite Tabl0.8 MG PO (01:18)
--- NOTE | 2023-04-20 02:02 | NUR ---
ADMIT NOTE 63 YR OLD MALE ADMITTED TO FLOOR FROM THE ED WITH DX OF METABOLIC ENCEPHALOPATHY. ED RN REPORTED PT WAS HAVING INCREASED TIREDNESS AND WEAKNESS AND THAT PTS CALLED AMBULANCE TO BE TAKEN TO THE HOSPITA. ALERT AND ORIENTED X 4. PT ON DIALYSIS, FISTULA IN LEFT ARM AND DIALYSIS PORT OF RIGHT CHEST. HAD FEVER IN THE ED, TYLENOL EFFECTIVE AFEBRILE AT THIS TIME. ORIENTED TO USE OF CALL LIGHT. CALL LIGHT IN REACH AND RAILS UP X 3 FOR SAFETY.
--- NOTE | 2023-04-20 04:37 | NUR ---
INSPECTOR BRAKE LINING SUMMARY ADMITTED EARLIER IN THE SHIFT. PLACED ON [employer], HAD A RUN OF SVT X 5.5 SECONDS AFTER RECEIVING FENTANYL FOR LEG PAIN. OTHERWISE ASYMPTOMATIC. NO FURTHER EPISODES REPORTED AFTER. HAS BEEN RESTING QUIETLY WITH FEW INTERRUPTIONS SINCE. CALL LIGHT IN REACH. WILL CONTINUE TO MONITOR
--- NOTE | 2023-04-20 05:14 | NUR ---
TEMP 104.3 ORAL, BP 178/94, HR 124. VERBAL RESPONSE DECREASED FROM THAT NOTED EARLIER. CALL PLACED TO MD. ORDERS FOR TYLENOL AND HYDRALAZINE OBTAINED. ICE TO BILAT AXILLA AND GROIN. IVF INFUSING. WILL CONTINUE TO MONITOR
[2023-04-20 05:25] LABS: BASOPHILS ABSOLUTE AUTO 0.02 K/mm3 (0.00-0.23); BASOPHILS PERCENT AUTO 0 % (0-2); EOSINOPHILS PERCENT AUTO 0 % (0-6); Hematocrit 31.3 % (37.0-53.0); Hemoglobin 10.7 g/dL (13.5-17.5); IMMATURE GRAN ABSOLUTE AUTO 0.08 K/mm3 (0.00-0.10); IMMATURE GRAN PERCENT AUTO 1 % (0-1); LYMPHOCYTES ABSOLUTE AUTO 0.23 K/mm3 (0.84-5.20); LYMPHOCYTES PERCENT AUTO 2 % (21-46); MONOCYTES ABSOLUTE AUTO 0.43 K/mm3 (0.16-1.47); MONOCYTES PERCENT AUTO 4 % (4-13); Mean Corpuscular HGB 33.3 pg (26.0-34.0); Mean Corpuscular HGB Conc 34.2 g/dL (31.5-36.5); Mean Corpuscular Volume 98 fL (80-100); Mean Platelet Volume 9.1 fL (9.1-12.4); NEUTROPHILS ABSOLUTE AUTO 9.79 K/mm3 (1.96-9.15); NEUTROPHILS PERCENT AUTO 93 % (41-73); Platelet Count 116 K/mm3 (150-400); RDW Coefficient Variation 13.9 % (11.7-14.2); RDW Standard Deviation 48.8 fL (35.1-46.3); Red Blood Cell Count 3.21 M/mm3 (4.30-5.90); White Blood Cell Count 10.55 K/mm3 (4.00-11.30)
[2023-04-20 05:57] LABS: Albumin/Globulin Ratio 0.8 (0.8-1.8); Bilirubin, Total 0.8 mg/dL (0.1-1.0); Bun/Creatinine Ratio 6.5 (12.0-20.0); Calcium, Blood 9.4 mg/dL (8.5-10.1); Creatinine, Blood 7.86 mg/dL (0.60-1.20); Potassium, Blood 5.3 mmol/L (3.5-5.5)
--- NOTE | 2023-04-20 11:37 | NUR ---
LATE ENTRY/TO DIALYSIS AT 0905
--- NOTE | 2023-04-20 12:01 | NUR ---
RETURN FROM DIALYSIS PT RETURNED FROM DIALYSIS. WRITHING IN PAIN. MEDICATED WITH FENTANYL PER EMAR AND WITH TYLENOL PER EMAR. PT BEGAN TO SETTLE DOWN AND STATES RELIEF. MONITORING TEMP.
--- NOTE | 2023-04-20 12:06 | NUR ---
TEMPORAL TEMP 100.8
--- NOTE | 2023-04-20 14:22 | NUR ---
IVF'S INFUSING AT 50ML/HR PER MD ORDER.
--- NOTE | 2023-04-20 15:50 | NUR ---
BLADDER SCAN DONE. SHOWS 18 MLS OF URINE IN BLADDER. PT STATES HE RARELY URINATES ANYMORE.
--- NOTE | 2023-04-20 18:31 | NUR ---
SHIFT SUMMARY A&O X 3-4. VSS. HAD DIALYSIS TODAY. MEDICATED WITH FENTANYL PER EMAR FOR C/O PAIN X 1 UPON RETURN FROM DIALYSIS WITH GOOD RELIEF STATED BY PT. TYLENOL GIVEN FOR ELEVATED TEMP. PT BASICALLY RESTED WITH EYES CLOSED AFTER RETURNING FROM DIALYSIS. MOST RECENT TEMP IS 99.4. PT STATES AT END OF THIS SHIFT THAT HIS PAIN HAS BEEN ALLEVIATED. RENAL DIET RESUMED FOR PT'S DINNER TONIGHT. PT ALSO NEEDED THE BATHROOM FOR A BM, WAS ABLE TO GET UP WITH FWW AND GB FOR STDBY ASSISIT TO RESTROOM. USED CALL LIGHT FOR ASSISTANCE TO RETURN TO BED. NOTIFIED OF + BLOOD CX'S OF GM+COCCI IN CLUSTERS. ROCHEPHIN GIVEN ORDERED PER EMAR. L UPPER ARM FISTULA WITH GOOD BRUIT. CALL LIGHT WITHIN REACH, BED IN LOW POSITION. IS ABLE TO MAKE NEEDS KNOWN.
--- NOTE | 2023-04-20 23:18 | NUR ---
START OF SHIFT THIS STUDENT NURSE ASSUMED CARE OF PT AT 1900 UNDER THE OBSERVATION OF NURSE SINGH ALONZO. PT RECEIVED [place] WITH HS MEDS, WILL ADDRESS THE SBP OF 138 AND PULSE OF 91. PT'S REMAINING VITALS WNL. PT A&OX4. PT LEFT IN A POSITION OF COMFORT AND SAFETY WITH BED IN LOW POSITION AND BREAKS LOCKED, TWO BED RAILS RAISED, NONSKID SOCKS IN PLACE, ROOM CLEAR OF DEBRIS, AND CALL LIGHT WITHIN REACH. WILL CONTINUE TO MONITOR.
[2023-04-21] VITALS (12 sets, daily range): BP systolic 81–162; BP diastolic 45–97
--- NOTE | 2023-04-21 04:39 | NUR ---
SHIFT SUMMARY THIS STUDENT NURSE ADDRESSED THE PT'S ENCEPHELOPATHY BY MONITORING HIS MENTAL STATUS THROUGHOUT MY SHIFT, ADDRESSING PT TEMPERATURE NEEDED, AND MONITORING HIS VITALS SIGNS FOR CHANGES. PT DEVELOPED A FEVER AROUND 0430. TYLENOL ADMINISTERED AND ICE PACKS APPLIED TO ADDRESS FEVER OF 101.6. WILL CONTINUE TO MONITOR PT FOR CHANGES. PULSE ELEVATED, SBP ELEVATED, WILL ASSESS AFTER FEVER DECREASES AND MONITOR FOR SYMPTOMS RT HIGH BP/PULSE. PT A&OX4. PT REMAINS IN A POSITION OF COMFORT AND SAFETY WITH BED LOCKED AND IN LOW POSITION, TWO BED RAILS RAISED, NONSKID SOCKS IN PLACE, ROOM CLEAR OF DEBRIS, AND CALL LIGHT WITHIN REACH. WILL CONTINUE TO MONITOR.
[2023-04-21 04:48] LABS: Hematocrit 28.7 % (37.0-53.0); Hemoglobin 9.8 g/dL (13.5-17.5)
--- NOTE | 2023-04-21 04:58 | NUR ---
I HAVE OBSERVED/ASSISTED STUDENT WITH PT CARE AND HAVE READ HER DOCUMENTATION OF SUCH. I AGREE WITH THE ABOVE.
[2023-04-21 05:24] LABS: Albumin, Blood 2.6 g/dL (3.4-5.0); Anion Gap 11 mmol/L (6-16); Blood Urea Nitrogen 49 mg/dL (8-24); Bun/Creatinine Ratio 7.2 (12.0-20.0); CO2, Blood 28 mmol/L (21-32); Chloride, Blood 93 mmol/L (98-108); Creatinine, Blood 6.78 mg/dL (0.60-1.20); Glomerular Filtration Rate 8 (60-); Glucose, Blood 104 mg/dL (70-99); Magnesium, Blood 1.9 mg/dL (1.6-2.4); Phosphorus, Blood 4.1 mg/dL (2.5-4.9); Potassium, Blood 4.8 mmol/L (3.5-5.5); Sodium, Blood 132 mmol/L (136-145)
--- NOTE | 2023-04-21 17:34 | NUR ---
SHIFT SUMMARY A&O X 4. VSS. NO ACUTE CHANGES THIS SHIFT. PT HAD DIALYSIS THIS AFTERNOON. HAS RESTED THROUGHOUT SHIFT TODAY WITH NO C/O OF DISCOMFORT. IR CONSULT HAS BEEN DONE FOR REMOVAL OF DIALYSIS CATHETER, POSSIBLY FOR SATURDAY. CALL LIGHT WITHIN REACH, BED IN LOW POSITION, PT IS ABLE TO MAKE NEEDS KNOWN. IS PLEASANT & COOPERATIVE WITH ALL CARE.
--- NOTE | 2023-04-22 03:59 | NUR ---
ASSISTANT SUPERINTENDENT SUMMARY TEMP WAS 99.0 DEGREES AT SHIFT COMMENCE, OTHERWISE VSS. DENIED PAIN, VOICED WANTED SHOWER BEFORE SLEEPING. ASSISTED TO SHOWER, VOICED HE COULD DO EVERYTHING WITHOUT ASSIST. NURSE RETURNED AND FOUND PT LAYING ON SHOWER CHAIR, STATED HE GOT HIS UNDERWARE WET AND WAS REACHING FOR THEM TO GET THEM OUT OF THE SHOWER. ASSISTED BACK ON TO SHOWER CHAIR, PT SHOWERED AND WAS ASSISTED BACK TO BED AFTER SHOWER. NO NOTED DISTRESS. HAS BEEN RESTING QUIETLY WITHOUT NOTED DISTRESS AND FEW INTERRUPTIONS. CALL LIGHT IN REACH. WILL CONTINUE TO MONITOR.
[2023-04-22 04:31] VITALS: BP 163/83
[2023-04-22 04:41] LABS: Hematocrit 30.9 % (37.0-53.0); Hemoglobin 10.6 g/dL (13.5-17.5)
[2023-04-22 05:07] LABS: Albumin, Blood 2.7 g/dL (3.4-5.0); Anion Gap 13 mmol/L (6-16); Blood Urea Nitrogen 46 mg/dL (8-24); Bun/Creatinine Ratio 7.1 (12.0-20.0); CO2, Blood 28 mmol/L (21-32); Calcium, Blood 9.3 mg/dL (8.5-10.1); Chloride, Blood 93 mmol/L (98-108); Creatinine, Blood 6.51 mg/dL (0.60-1.20); Glomerular Filtration Rate 9 (60-); Glucose, Blood 110 mg/dL (70-99); Phosphorus, Blood 4.1 mg/dL (2.5-4.9); Potassium, Blood 3.9 mmol/L (3.5-5.5); Sodium, Blood 134 mmol/L (136-145)
[2023-04-22 07:40] VITALS: BP 170/81
[2023-04-22 10:11] VITALS: BP 146/80
--- NOTE | 2023-04-22 15:05 | NUR ---
NOTE: SPOKE WITH CONTACT ACID PLANT OPERATOR FOR DR. KING TO CONFIRM PERMA CATH REMOVAL TODAY. SHE SAID THAT DR. KING IS NOT IN THE OFFICE TODAY AND THAT HE WOULD BE CONSULTING THE PT AND REMOVING THE PERMA CATHETER TOMORROW. DR. FRY AND CHARGE NURSE NOTIFIED.
[2023-04-22 15:07] VITALS: BP 139/77
--- NOTE | 2023-04-22 17:15 | NUR ---
SHIFT SUMMARY PT AOX4, SBA TO THE BATHROOM. HE IS COOPERATIVE AND MAKES HIS NEEDS KNOWN. HE HAS HAD NO COMPLAINTS TODAY. CONTACTED DR. DERAS OFFICE TO CONFIRM CONSULTATION AND HIS OFFICE STATED HE WILL BE IN TO CONSULT TOMORROW AND WILL MOST LIKELY REMOVE THE PERMA CATH TOMORROW. PT HAS SLEPT OFF AND ON MOST OF THE SHIFT. CALL LIGHT IS WITHIN REACH, BED IN THE LOWEST POSITION. WILL REPORT TO ONCOMING NURSE.
[2023-04-22 19:24] VITALS: BP 192/96
[2023-04-22 20:20] VITALS: BP 169/76
[2023-04-23] VITALS (21 sets, daily range): BP systolic 124–169; BP diastolic 63–90
[2023-04-23 05:09] LABS: Hemoglobin 10.1 g/dL (13.5-17.5)
[2023-04-23 06:09] LABS: Magnesium, Blood 1.6 mg/dL (1.6-2.4)
[2023-04-23 06:23] LABS: Albumin, Blood 2.6 g/dL (3.4-5.0); Anion Gap 13 mmol/L (6-16); Blood Urea Nitrogen 59 mg/dL (8-24); Bun/Creatinine Ratio 6.7 (12.0-20.0); CO2, Blood 26 mmol/L (21-32); Calcium, Blood 8.9 mg/dL (8.5-10.1); Chloride, Blood 92 mmol/L (98-108); Creatinine, Blood 8.86 mg/dL (0.60-1.20); Glomerular Filtration Rate 6 (60-); Glucose, Blood 124 mg/dL (70-99); Phosphorus, Blood 2.4 mg/dL (2.5-4.9); Potassium, Blood 3.8 mmol/L (3.5-5.5); Sodium, Blood 131 mmol/L (136-145)
--- NOTE | 2023-04-23 17:19 | NUR ---
SHIFT SUMMARY PT AOX4, SBA WITH FWW AND GB. HE HAD DIALYSIS TODAY AND APPEARED IN WRITHING PAIN UP ON HIS RETURN. HE WAS MEDICATED PER THE EMAR. THIS NURSE CALLED DR. KING'S OFFICE AGAIN TODAY TO CONFIRM THE CONSULTATION. THE OFFICE STATED THEY HAVE THE CONSULT BUT THAT DR. KING WAS IN PROCEDURES ALL DAY AND WOULD ATTEMPT TO COME BY AFTER PROCEDURES THIS EVENING. PT WAS INFORMED. PT HAS BEEN RESTING PEACEFULLY SINCE, THE PAIN APPEARS TO BE UNDER CONTROL. CALL LIGHT IS WITHIN REACH, BEDIN THE LOWEST POSITION. WILL REPORT TO ONCOMING NURSE.
[2023-04-24 04:53] VITALS: BP 150/73
--- NOTE | 2023-04-24 05:26 | NUR ---
SHIFT SUMMARY PT LAYING IN BED WATCHING TV DURING BEDSIDE REPORT- PT ASKED THIS RN IF THERE IS AN UPDATE OF WHEN HIS MEDPORT WILL BE REMOVED- REPORT FROM MAO SALAZAR DAYSHI THAT CALL TO DR. KING'S OFFICE REPORTED THAT HE WOULD POSSIBLY BE IN AFTER PROCEDURES AND CLINIC- PT REQUESTED PAIN MEDICATION - GIVEN WITH HS MEDICATIONS AND TYLENOL FOR LOW GRADE FEVER- PT ON TELE AT SR AT 88-, PT FEBRILE WITH MORNING VITALS, GAVE TYLENOL PER PRN ORDER- BED LOW POSITION, CALL LIGHT WITHIN REACH
[2023-04-24 07:42] VITALS: BP 167/80
[2023-04-24 07:45] VITALS: BP 155/85
--- NOTE | 2023-04-24 15:42 | NUR ---
SHIFT SUMMARY No acute changes to patient status, awaiting IR consult. Patient worked with therapy today. IR surgeon consulted and plans to remove permacath this afternoon. Vitals stable, no dialysis today.
[2023-04-24 15:49] VITALS: BP 135/73
--- NOTE | 2023-04-24 16:12 | NUR ---
ASSUMED CARE ASSUMED CARE OF THE PATIENT AT THIS TIME, REPORT TAKEN FROM ROSEY SALAZAR
--- NOTE | 2023-04-24 17:04 | NUR ---
PT IS A/OX3, PLEASANT AND COOPERATIVE. PT WENT TO THE SUPERINTENDENT POLICE TO HAVE HIS RIGHT CHEST PERMA CATH REMOVED VIA WHEELCHAIR. PT BACK TO HIS ROOM APROXIMATLY 15 MIN LATER VIA WHEELCHAIR. DRESSING COVERING REMOVAL SITE SCANT AMOUNT OF BLOOD. CALL LIGHT IN REACH. WILL CONTINUE TO MONITOR AND ASSESS FOR CHANGES
[2023-04-24 19:27] VITALS: BP 160/90
[2023-04-25] VITALS (14 sets, daily range): BP systolic 133–166; BP diastolic 73–114
--- NOTE | 2023-04-25 04:43 | NUR ---
SHIFT SUMMARY 63 YR M ADMITTED ON 04/20/23 FOR AMS. FULL CODE. NO ACUTE CHANGES THIS SHIFT. PT REPORTS MINIMAL PAIN AT PERMA CATH REMOVAL SITE. HE DOES C/O PAIN IN HIS ALANA FLANKS. HE WAS GIVEN PAIN MEDS PER EMAR WITH GOOD RELIEF. PT HAS SLEPT FOR MOST OF THIS SHIFT. HE IS PLEASANT AND COOPERATIVE WITH CARE.
[2023-04-25 04:57] LABS: Hematocrit 29.5 % (37.0-53.0); Hemoglobin 10.1 g/dL (13.5-17.5)
[2023-04-25 05:43] LABS: Magnesium, Blood 1.8 mg/dL (1.6-2.4)
[2023-04-25 05:49] LABS: Albumin, Blood 2.4 g/dL (3.4-5.0); Anion Gap 10 mmol/L (6-16); Blood Urea Nitrogen 56 mg/dL (8-24); Bun/Creatinine Ratio 6.8 (12.0-20.0); CO2, Blood 30 mmol/L (21-32); Calcium, Blood 9.7 mg/dL (8.5-10.1); Chloride, Blood 93 mmol/L (98-108); Glomerular Filtration Rate 7 (60-); Glucose, Blood 120 mg/dL (70-99); Phosphorus, Blood 2.8 mg/dL (2.5-4.9); Potassium, Blood 3.7 mmol/L (3.5-5.5); Sodium, Blood 133 mmol/L (136-145)
--- NOTE | 2023-04-25 17:28 | NUR ---
DC- PT DC IN STABLE CONDITION AND LEFT WITH ALL BELINGINGS. PT'S SISTER PICKED UP PT. RN DISCUSSED APPOINTMENT WITH PT TOMORROW AT 1130 FOR [facility]OT[facility]. RN ALSO DISCUSSED RESUMING DIALYSIS T//SAT. RN DISCUSSED DIALYSIS CAN ADMINISTER ANTIBIOTICS AND HE ONLY NEEDS TO GO TO INFUSION CENTER ON THE DAYS HE DOES NOT HAVE DIALYSIS. PT VERBALIZED UNDERSTANDING.
[2023-04-26] MEDS ORDERED: CEFAZOLIN SODIUM1 G1 IV (12:27)
== END 2023-04-25 15:13 | disposition home or self-care (01) | DRG 314 ==
LOC: ER 21:35 → MEDS 21:36
PROVIDERS: Internal Medicine Nephrology; Student in an Organized Health Care Education/Training Program; ADMIT Internal Medicine
PROC: 02PYX3Z Removal of Infusion Device from Great Vessel, External Approach (ICD-10-PCS; principal; 2023-04-24)
DX: T80.211A Bloodstream infection due to central venous catheter, initial encounter (principal); G93.41 Metabolic encephalopathy; N18.6 End stage renal disease; I13.2 Hypertensive heart and chronic kidney disease with heart failure and with stage 5 chronic kidney disease, or end stage renal disease; R65.10 Systemic inflammatory response syndrome (SIRS) of non-infectious origin without acute organ dysfunction; E87.1 Hypo-osmolality and hyponatremia; R78.81 Bacteremia; N25.81 Secondary hyperparathyroidism of renal origin; I50.32 Chronic diastolic (congestive) heart failure; Z20.822 Contact with and (suspected) exposure to COVID-19; E86.9 Volume depletion, unspecified; D63.1 Anemia in chronic kidney disease; E87.5 Hyperkalemia; E86.0 Dehydration; D72.829 Elevated white blood cell count, unspecified; E03.9 Hypothyroidism, unspecified; M10.9 Gout, unspecified; Z90.49 Acquired absence of other specified parts of digestive tract; Z90.89 Acquired absence of other organs; Z88.8 Allergy status to other drugs, medicaments and biological substances; Z99.2 Dependence on renal dialysis; Z87.891 Personal history of nicotine dependence; Z98.890 Other specified postprocedural states; Z79.2 Long term (current) use of antibiotics; Z79.890 Hormone replacement therapy; Z79.899 Other long term (current) drug therapy
CPT/HCPCS: 0241U; 36415; 36589; 51701; 51798; 71045; 74177; 80053; 80069; 81001; 82140; 83605; 83735; 84132; 84443; 85014; 85018; 85025; 87040; 87070; 87077; 87186; 93005; 93010; 96361-59; 96365-59; 96366; 96367; 96372; 96375; 97110; 97116; 97162; 97165; 97530; 99285-25; A9270; G0378; J0360; J0690; J0692; J0696; J0881; J1644; J3010; J3370; J7030; J7060; Q9967

== ENCOUNTER 2023-04-27 01:16 | Day surgery (SDC) | payer MEDICARE ==
[~2023-04-27 01:16] MED LIST changes: +CEFAZOLIN SODIUM1 G1 IV
[2023-04-27 12:00] VITALS: BP 101/58
== END 2023-04-27 11:46 | disposition home or self-care (01) ==
LOC: ATC 01:16
DX: R78.81 Bacteremia (principal); N18.6 End stage renal disease; Z99.2 Dependence on renal dialysis; E03.9 Hypothyroidism, unspecified; M10.9 Gout, unspecified; I12.0 Hypertensive chronic kidney disease with stage 5 chronic kidney disease or end stage renal disease; B95.8 Unspecified staphylococcus as the cause of diseases classified elsewhere
CPT/HCPCS: 96374; J0690; J0696

== ENCOUNTER 2023-04-28 06:20 | Day surgery (SDC) | payer MEDICARE ==
[2023-04-28 11:45] VITALS: BP 111/69
== END 2023-04-28 11:55 | disposition home or self-care (01) ==
LOC: ATC 06:20
DX: R78.81 Bacteremia (principal); B95.8 Unspecified staphylococcus as the cause of diseases classified elsewhere; N18.6 End stage renal disease; Z99.2 Dependence on renal dialysis; E03.9 Hypothyroidism, unspecified; M10.9 Gout, unspecified; I12.0 Hypertensive chronic kidney disease with stage 5 chronic kidney disease or end stage renal disease
CPT/HCPCS: 96374; J0690

== ENCOUNTER 2023-04-29 03:18 | Day surgery (SDC) | payer MEDICARE ==
[2023-04-29 11:38] VITALS: BP 143/92
== END 2023-04-29 11:45 | disposition home or self-care (01) ==
LOC: ATC 03:18
DX: R78.81 Bacteremia (principal); B95.8 Unspecified staphylococcus as the cause of diseases classified elsewhere; I10 Essential (primary) hypertension; Z88.8 Allergy status to other drugs, medicaments and biological substances
CPT/HCPCS: 96374; J0690

== ENCOUNTER 2023-05-01 03:05 | Day surgery (SDC) | payer MEDICARE ==
[2023-05-01 12:07] VITALS: BP 130/73
== END 2023-05-01 12:08 | disposition home or self-care (01) ==
LOC: ATC 03:05
DX: R78.81 Bacteremia (principal); B95.8 Unspecified staphylococcus as the cause of diseases classified elsewhere; I10 Essential (primary) hypertension
CPT/HCPCS: 96374; C1751; J0690

== ENCOUNTER 2023-05-02 03:00 | Day surgery (SDC) | payer MEDICARE ==
[2023-05-02 11:37] VITALS: BP 152/76
== END 2023-05-02 11:41 | disposition home or self-care (01) ==
LOC: ATC 03:00
DX: R78.81 Bacteremia (principal); B95.8 Unspecified staphylococcus as the cause of diseases classified elsewhere; E03.9 Hypothyroidism, unspecified; I13.0 Hypertensive heart and chronic kidney disease with heart failure and stage 1 through stage 4 chronic kidney disease, or unspecified chronic kidney disease; N18.6 End stage renal disease; I50.32 Chronic diastolic (congestive) heart failure; Z79.899 Other long term (current) drug therapy
CPT/HCPCS: 96374; J0690

== ENCOUNTER 2023-05-04 06:03 | Day surgery (SDC) | payer MEDICARE ==
[2023-05-04 11:40] VITALS: BP 127/85
== END 2023-05-04 12:00 | disposition home or self-care (01) ==
LOC: ATC 06:03
DX: R78.81 Bacteremia (principal); B95.8 Unspecified staphylococcus as the cause of diseases classified elsewhere; I13.2 Hypertensive heart and chronic kidney disease with heart failure and with stage 5 chronic kidney disease, or end stage renal disease; N18.6 End stage renal disease; I50.32 Chronic diastolic (congestive) heart failure; E03.9 Hypothyroidism, unspecified; Z79.899 Other long term (current) drug therapy
CPT/HCPCS: J0690

== ENCOUNTER 2023-05-05 02:45 | Day surgery (SDC) | payer MEDICARE ==
[2023-05-05 11:30] VITALS: BP 151/56
== END 2023-05-05 11:45 | disposition home or self-care (01) ==
LOC: ATC 02:45
DX: R78.81 Bacteremia (principal); B95.61 Methicillin susceptible Staphylococcus aureus infection as the cause of diseases classified elsewhere; I13.2 Hypertensive heart and chronic kidney disease with heart failure and with stage 5 chronic kidney disease, or end stage renal disease; N18.6 End stage renal disease; I50.32 Chronic diastolic (congestive) heart failure; E03.9 Hypothyroidism, unspecified; Z79.890 Hormone replacement therapy; Z79.899 Other long term (current) drug therapy
CPT/HCPCS: J0690

== ENCOUNTER 2023-05-06 02:12 | Day surgery (SDC) | payer MEDICARE ==
[2023-05-06 11:28] VITALS: BP 145/82
== END 2023-05-06 11:46 | disposition home or self-care (01) ==
LOC: ATC 02:12
DX: R78.81 Bacteremia (principal); B95.8 Unspecified staphylococcus as the cause of diseases classified elsewhere; N18.6 End stage renal disease; Z99.2 Dependence on renal dialysis; E03.9 Hypothyroidism, unspecified; M10.9 Gout, unspecified; I50.32 Chronic diastolic (congestive) heart failure; I13.2 Hypertensive heart and chronic kidney disease with heart failure and with stage 5 chronic kidney disease, or end stage renal disease
CPT/HCPCS: 96374; J0690

== ENCOUNTER 2023-05-08 02:50 | Day surgery (SDC) | payer MEDICARE ==
[2023-05-08 11:33] VITALS: BP 136/62
== END 2023-05-08 11:50 | disposition home or self-care (01) ==
LOC: ATC 02:50
DX: R78.81 Bacteremia (principal); B95.8 Unspecified staphylococcus as the cause of diseases classified elsewhere; N18.6 End stage renal disease; Z99.2 Dependence on renal dialysis; M10.9 Gout, unspecified; E03.9 Hypothyroidism, unspecified; I50.32 Chronic diastolic (congestive) heart failure; I13.2 Hypertensive heart and chronic kidney disease with heart failure and with stage 5 chronic kidney disease, or end stage renal disease
CPT/HCPCS: J0690

== ENCOUNTER 2023-07-11 13:56 | Inpatient (IN) | payer MEDICARE ==
[~2023-07-11] VITALS: Ht 182.9 cm; Wt 81.3 kg
[2023-07-11 17:21] VITALS: BP 228/107
[2023-07-11] MEDS ORDERED: CARV3.125 PO (17:31)
[2023-07-11 18:52] VITALS: BP 228/101
[2023-07-11 18:58] VITALS: BP 206/97
[2023-07-11 19:04] VITALS: BP 219/102
[2023-07-11 19:10] VITALS: BP 196/120
[2023-07-11 19:26] VITALS: BP 157/97
--- NOTE | 2023-07-11 19:29 | NUR ---
PATIENT ARRIVED ON UNIT AT 1710 WITH ABDOMINAL PAIN 7/10 AND INCREASED BLOOD PRESSURE. PATIENT AOX4 BUT POOR HISTORIAN REGARDING MEDICATIONS. CALL TO DR VILLAGOMEZ REGARDING PAIN AND BLOOD PRESSURE. PATIENT MEDICATED PER EMAR AND REPORTS PAIN CONTROL AFTER FENTANYL. BED IN LOW POSITION. CALL LIGHT IN REACH. LR RUNNING AT 150.
[2023-07-12] VITALS (8 sets, daily range): BP systolic 159–197; BP diastolic 78–92
[2023-07-12 05:06] LABS: BASOPHILS ABSOLUTE AUTO 0.04 K/mm3 (0.00-0.23); BASOPHILS PERCENT AUTO 1 % (0-2); EOSINOPHILS PERCENT AUTO 3 % (0-6); Hematocrit 33.2 % (37.0-53.0); Hemoglobin 11.1 g/dL (13.5-17.5); IMMATURE GRAN ABSOLUTE AUTO 0.02 K/mm3 (0.00-0.10); IMMATURE GRAN PERCENT AUTO 0 % (0-1); LYMPHOCYTES PERCENT AUTO 7 % (21-46); MONOCYTES PERCENT AUTO 11 % (4-13); Mean Corpuscular HGB 32.2 pg (26.0-34.0); Mean Corpuscular HGB Conc 33.4 g/dL (31.5-36.5); Mean Corpuscular Volume 96 fL (80-100); Mean Platelet Volume 9.5 fL (9.1-12.4); NEUTROPHILS ABSOLUTE AUTO 6.36 K/mm3 (1.96-9.15); NEUTROPHILS PERCENT AUTO 78 % (41-73); Platelet Count 184 K/mm3 (150-400); RDW Coefficient Variation 13.8 % (11.7-14.2); RDW Standard Deviation 48.6 fL (35.1-46.3); Red Blood Cell Count 3.45 M/mm3 (4.30-5.90); White Blood Cell Count 8.12 K/mm3 (4.00-11.30)
--- NOTE | 2023-07-12 05:16 | NUR ---
SHIFT SUMMARY PATIENT REPORTED ABDOMEN PAIN X TWO AND IV DILAUDID 1 MG GIVEN PER EMAR. SBP 181/81 AND IV APRESOLINE 10 MG GIVEN FOR SBP >160. RECHECKED AT 159/78. AXOX 4 AND NPO. INDEPENDENT IN ROOM. FISTULA LEFT ARM. PIV REMAINS INTACT. LR INFUSING @ 150 mL/HR. DENIES CHEST PAIN, SOB, AND N/V. SLEPT MOST OF SHIFT WHEN PAIN MANAGED. CALL LIGHT IN REACH. BED IN LOWEST POSITION. WILL CONTINUE TO MONITOR UNTIL DAY SHIFT NURSE ASSUMES CARE.
[2023-07-12 05:26] LABS: Bun/Creatinine Ratio 4.1 (12.0-20.0); Calcium, Blood 9.1 mg/dL (8.5-10.1); Creatinine, Blood 5.89 mg/dL (0.60-1.20); Potassium, Blood 4.4 mmol/L (3.5-5.5)
--- NOTE | 2023-07-12 16:50 | NUR ---
SHIFT SUMMARY- PT IS A/O, PLESANT AND COOPERATIVE. HE HAS BEEN NPO THIS SHIFT. WILL ADVANCE HIS DIET TONIGHT IF TOLORATED. BLOOD PRESSURES HAVE BEEN ELEVATED THIS SHIFT. TREATING WITH IV HYDRALAZINE. HIS AMBULATED TO THE RESTROOM THIS SHIFT TO SHAVE AND WASH HIS FACE. PAIN HAS DECREASED SINCE THIS MORNING. HIS BED IS IN THE LOW POSITION AND CALL LIGHT IS WITHIN REACH.
[2023-07-13] VITALS (15 sets, daily range): BP systolic 160–193; BP diastolic 42–88
[2023-07-13 05:01] LABS: BASOPHILS ABSOLUTE AUTO 0.04 K/mm3 (0.00-0.23); BASOPHILS PERCENT AUTO 1 % (0-2); EOSINOPHILS ABSOLUTE AUTO 0.11 K/mm3 (0.00-0.68); EOSINOPHILS PERCENT AUTO 2 % (0-6); Hematocrit 29.4 % (37.0-53.0); Hemoglobin 9.9 g/dL (13.5-17.5); IMMATURE GRAN ABSOLUTE AUTO 0.02 K/mm3 (0.00-0.10); IMMATURE GRAN PERCENT AUTO 0 % (0-1); LYMPHOCYTES ABSOLUTE AUTO 0.74 K/mm3 (0.84-5.20); LYMPHOCYTES PERCENT AUTO 12 % (21-46); MONOCYTES ABSOLUTE AUTO 0.83 K/mm3 (0.16-1.47); MONOCYTES PERCENT AUTO 14 % (4-13); Mean Corpuscular HGB Conc 33.7 g/dL (31.5-36.5); Mean Corpuscular Volume 95 fL (80-100); Mean Platelet Volume 9.4 fL (9.1-12.4); NEUTROPHILS ABSOLUTE AUTO 4.29 K/mm3 (1.96-9.15); NEUTROPHILS PERCENT AUTO 71 % (41-73); Platelet Count 166 K/mm3 (150-400); RDW Coefficient Variation 13.9 % (11.7-14.2); RDW Standard Deviation 48.6 fL (35.1-46.3); Red Blood Cell Count 3.09 M/mm3 (4.30-5.90); White Blood Cell Count 6.03 K/mm3 (4.00-11.30)
[2023-07-13 05:23] LABS: Albumin, Blood 2.8 g/dL (3.4-5.0); Albumin/Globulin Ratio 0.8 (0.8-1.8); Bun/Creatinine Ratio 4.2 (12.0-20.0); Creatinine, Blood 7.86 mg/dL (0.60-1.20); Globulin, Blood 3.7 g/dL (2.2-4.0); Magnesium, Blood 1.9 mg/dL (1.6-2.4); Phosphorus, Blood 3.1 mg/dL (2.5-4.9); Potassium, Blood 4.5 mmol/L (3.5-5.5); Total Protein, Blood 6.5 g/dL (6.4-8.2)
--- NOTE | 2023-07-13 06:23 | NUR ---
SHIFT SUMMARY NO ACUTE CHANGES THROUGH THE NIGHT, PT REMAINS A&O X4, ON RA, PRN HYDRALIZINE FOR HTN, TOLERATING CLEAR FLUIDS, DENIES NAUSEA, PAIN WNL, LR INFUSING @ 50 ML/HR PER EMAR, PT IS RESTING QUIETLY IN BED AT THIS TIME, RESP UNLABORED, CALL LIGHT IN REACH. WCTM & REPORT TO DAY RN.
--- NOTE | 2023-07-13 12:17 | NUR ---
PT TRANSFERRED BACK FROM DIALYSIS AT 1215.
--- NOTE | 2023-07-13 16:13 | NUR ---
DC- PT BROUGHT DOWN IN WC FOR DC TO SISTER. PT LEFT IN STABLE CONDITION WITH ALL BELONGINGS. PT SIGNED ALL DC PAPERWORK AND VERBALLY AGREED TO DC INSTRUCTIONS.
== END 2023-07-13 16:01 | disposition home or self-care (01) | DRG 438 ==
LOC: ER 13:56 → MEDS 13:57
PROVIDERS: ADMIT Internal Medicine
PROC: 5A1D70Z Performance of Urinary Filtration, Intermittent, Less than 6 Hours Per Day (ICD-10-PCS; principal; 2023-07-13)
DX: K85.90 Acute pancreatitis without necrosis or infection, unspecified (principal); N18.6 End stage renal disease; I13.2 Hypertensive heart and chronic kidney disease with heart failure and with stage 5 chronic kidney disease, or end stage renal disease; E87.1 Hypo-osmolality and hyponatremia; I50.9 Heart failure, unspecified; D63.1 Anemia in chronic kidney disease; E86.9 Volume depletion, unspecified; E03.9 Hypothyroidism, unspecified; B18.2 Chronic viral hepatitis C; E88.09 Other disorders of plasma-protein metabolism, not elsewhere classified; Z88.8 Allergy status to other drugs, medicaments and biological substances; Z79.890 Hormone replacement therapy; Z79.899 Other long term (current) drug therapy; Z90.89 Acquired absence of other organs; Z90.49 Acquired absence of other specified parts of digestive tract; Z98.890 Other specified postprocedural states; Z87.891 Personal history of nicotine dependence; Z86.19 Personal history of other infectious and parasitic diseases; Z99.2 Dependence on renal dialysis
CPT/HCPCS: 36415; 80048; 80053; 83735; 84100; 85025; 96361; 96372; 96374; 96375; 96376; 99284-25; A9270; G0378; J0360; J0881; J1170; J1644; J2405; J3010; J7030; J7120

== ENCOUNTER 2024-04-29 07:46 | Emergency (ER) | payer MEDICARE ==
[~2024-04-29] VITALS: Ht 182.9 cm; Wt 83.9 kg
[2024-04-29 08:08] VITALS: BP 138/65
[2024-04-29] MEDS ORDERED: HYDROmorphone HCl/Pf 1MG SYR IV ONE (09:40)
[2024-04-29] MEDS ORDERED: MORP15ER PO (10:09)
== END 2024-04-29 10:26 ==
LOC: ER 07:46
DX: S42.214A Unspecified nondisplaced fracture of surgical neck of right humerus, initial encounter for closed fracture (principal); I13.2 Hypertensive heart and chronic kidney disease with heart failure and with stage 5 chronic kidney disease, or end stage renal disease; N18.6 End stage renal disease; E03.9 Hypothyroidism, unspecified; W18.30XA Fall on same level, unspecified, initial encounter; Z87.891 Personal history of nicotine dependence; Z79.899 Other long term (current) drug therapy; Z88.8 Allergy status to other drugs, medicaments and biological substances
CPT/HCPCS: 96374; 99283-25; J1170

== ENCOUNTER 2024-12-10 06:04 | Day surgery (SDC) | payer MEDICARE ==
[~2024-12-10] VITALS: Ht 172.7 cm; Wt 88.8 kg
[2024-12-10] VITALS (19 sets, daily range): BP systolic 113–192; BP diastolic 72–90
[~2024-12-10 06:04] MED LIST changes: +MORP15ER PO
[2024-12-10] MEDS ORDERED: Tranexamic Acid 100 ML IV SCH (06:15)
[2024-12-10] MEDS ORDERED: CeFAZolin Sodium 2,000 MG in NS 100 ML IV SCH (06:15)
[2024-12-10] MEDS ORDERED: OxyCODONE HCL 10 MG TABCR PO SCH (06:15)
[2024-12-10] MEDS ORDERED: Acetaminophen 500 MG Tab PO SCH (06:15)
[2024-12-10] MEDS ORDERED: NS 1,000 ML IV SCH (06:15)
[2024-12-10] MEDS ORDERED: FentaNYL Citrate 50 MCG/ML 2 ML Injection ONE (06:46)
[2024-12-10] MEDS ORDERED: Phenylephrine HCl 100 MCG/ML-NS 10MLSYR (1MG/10ML) ONE (06:46)
[2024-12-10] MEDS ORDERED: Bupivacaine 0.5% HCl 5 MG/ML 30MLVIAL ONE (06:46)
[2024-12-10] MEDS ORDERED: Ondansetron HCl 2 MG / ML 2ML Vial ONE ×2 (06:46→14:01)
[2024-12-10] MEDS ORDERED: Midazolam HCl 1MG / ML 2ML Vial ONE (06:46)
[2024-12-10] MEDS ORDERED: Rocuronium Bromide 10 MG/ML 5ML Injection IV ONE (06:46)
[2024-12-10] MEDS ORDERED: Dexamethasone Sod Phos 10 MG/ML 1ML VIAL ONE (06:46)
[2024-12-10] MEDS ORDERED: propofoL 20 ML IV ONE ×3 (06:48→08:24)
[2024-12-10] MEDS ORDERED: Etomidate 2MG / ML 10ML Vial ONE (07:46)
[2024-12-10 08:02] LABS: Albumin, Blood 3.4 g/dL (3.4-5.0); Albumin/Globulin Ratio 0.8 (0.8-1.8); Bilirubin, Total 0.6 mg/dL (0.1-1.0); Bun/Creatinine Ratio 6.4 (12.0-20.0); Calcium, Blood 10.1 mg/dL (8.5-10.1); Creatinine, Blood 5.66 mg/dL (0.60-1.20); Globulin, Blood 4.2 g/dL (2.2-4.0); Total Protein, Blood 7.6 g/dL (6.4-8.2)
[2024-12-10] MEDS ORDERED: Vancomycin HCl 1000 MG ADDvantage ONE (09:02)
[2024-12-10] MEDS ORDERED: Sugammadex Sodium 200 MG/2ML SDV (100 MG/ML) ONE ×2 (09:04→10:39)
[2024-12-10] MEDS ORDERED: ePHEDrine Sulfate 50 MG/ML 1ML Injection ONE (09:04)
--- NOTE | 2024-12-10 09:21 | NUR ---
12/10/24 0921 Beckie Donnelly 1GM VANCOMYCIN, MIXED WITH STIMULAN BEADS,ADMINISTERED BY DR LY INTRAOPERATIVELY. SEE 'S NOTES.
[2024-12-10] MEDS ORDERED: HYDROcodone 5-APAP 325 TAB PO PRN (11:20)
[2024-12-10] MEDS ORDERED: HYDROmorphone HCl/Pf 1MG SYR ONE (11:28)
[2024-12-10] MEDS ORDERED: CeFAZolin Sodium 2,000 MG in NS 100 ML IV ONE (12:45)
[2024-12-10] MEDS ORDERED: Ondansetron HCl 2 MG / ML 2ML Vial IV ONE (14:00)
--- NOTE | 2024-12-10 14:00 | NUR ---
ASSUMED CARE. RIGHT SHOULDER DRESSING C/D/I-POLAR PACK AND ARM IMMOBILIZER IN PLACE. PT REPORTS 7/10 RIGHT SHOULDER PAIN. PT ALSO REPORTS NAUSEA-MED WITH ZOFRAN 4 MG IVP X 1.
--- NOTE | 2024-12-10 15:00 | NUR ---
PT REPORTS THAT HIS NAUSEA HAS RESOLVED AND PAIN LEVEL NOW 5/10 WHICH IS A TOLERABLE LEVEL FOR HIM. REVIEWED DISCHARGE INSTRUCTIONS-PT VERBALIZES UNDERSTANDING.
--- NOTE | 2024-12-10 15:22 | NUR ---
PT DISCHARGED TO HOME. OUT VIA WHEELCHAIR WITH DISCHARGE INSTRUCTIONS AND BELONGINGS ON HAND. PT SENT HOME WITH POLAR PACK AND OPERATION GUIDE FOR POLAR PACK AND 2 AQUACEL DRESSINGS. PT SISTER VALERIO DRIVING PT HOME.
== END 2024-12-10 15:22 | disposition home or self-care (01) ==
LOC: ORSCMMR 06:04 → ORD 07:30 → ORSCMMR 15:22
PROVIDERS: Anesthesiology; Orthopaedic Surgery
PROC: 0PHC04Z Insertion of Internal Fixation Device into Right Humeral Head, Open Approach (ICD-10-PCS; principal; 2024-12-10 07:30)
PROC: 0RRJ00Z Replacement of Right Shoulder Joint with Reverse Ball and Socket Synthetic Substitute, Open Approach (ICD-10-PCS; principal; 2024-12-10 07:30)
DX: S42.241D 4-part fracture of surgical neck of right humerus, subsequent encounter for fracture with routine healing (principal); I12.0 Hypertensive chronic kidney disease with stage 5 chronic kidney disease or end stage renal disease; N18.6 End stage renal disease; Z87.891 Personal history of nicotine dependence; I50.9 Heart failure, unspecified; E03.9 Hypothyroidism, unspecified; Z79.899 Other long term (current) drug therapy; B18.2 Chronic viral hepatitis C
CPT/HCPCS: 36415; 73030; 80053; 84132; 87070; 87071; 87075; 87205; 88305; 88311; 88331; A9270; C1713; C1776; J0690; J1100; J1171; J2250; J2371; J2405; J2704; J3010; J3370; J7030